=== PATIENT | male | born 1960 | race Caucasian/White ===

== ENCOUNTER 2016-09-01 12:21 | Inpatient (IN) | payer MEDICARE ==
[~2016-09-01] VITALS: Ht 177.8 cm; Wt 204.1 kg
[~2016-09-01 12:21] MED LIST: BUMEX 1 MG TAB1 MG PO; FLORAJEN3 CAPS460 MG PO; HYDROCODONE-APA1 TAB PO; K-TAB10 MEQ PO; KENALOG 0.1 % 115 GM TOPICAL; KLOR-CON 1010 MEQ PO; NYSTATIN1 PWD TOPICAL; PREPARATION H O57 GM RC; PROTONIX40 MG PO; SALINE FLUSH10 ML IV; VIBRAMYCIN 100100 MG PO
[2016-09-01 13:07] LABS: BASOPHILS 0.6 % (0-2); EOSINOPHILS 4.3 % (0-7); HEMATOCRIT 34.2 % (42.0-54.0); HEMOGLOBIN 10.9 g/dL (13.5-17.5); LYMPHOCYTES 12.1 % (15-50); MCH 26.7 pg (26.0-34.0); MCHC 31.9 g/dL (31.0-37.0); MCV 83.8 fL (80.0-100.0); MONOCYTES 14.5 % (2-11); NEUTROPHILS 67.5 % (40-80); PLATELET COUNT 132 10x3/uL (130-400); RBC 4.08 10x6/uL (4.20-6.10); RDW 18.2 % (11.5-14.5); WBC 6.8 10x3/uL (4.8-10.8)
[2016-09-01 13:17] LABS: APPEARANCE CLEAR (CLEAR); BILIRUBIN NEGATIVE (NEGATIVE); COLOR YELLOW (YELLOW); GLUCOSE NEGATIVE (NEGATIVE); KETONE NEGATIVE (NEGATIVE); LEUKOCYTE ESTERASE 1+ (NEGATIVE); NITRITE NEGATIVE (NEGATIVE); PROTEIN NEGATIVE (NEGATIVE); UROBILINOGEN NORMAL (NORMAL)
[2016-09-01 13:17] LABS: ALBUMIN 1.9 g/dL (3.4-5.0); ALKALINE PHOSPHATASE 121 U/L (46-116); ALT (SGPT) 5 U/L (10-68); BILIRUBIN - TOTAL 0.95 mg/dL (0.2-1.3); CALC OSMOLALITY 270 mosm/kg (275-300); CARBON DIOXIDE 28.8 mmol/L (21.0-32.0); CHLORIDE - SERUM 103 mmol/L (98-107); GLUCOSE 96 mg/dL (74-106); POTASSIUM - SERUM 3.3 mmol/L (3.5-5.1); PROTEIN - SERUM 8.1 g/dL (6.4-8.2); SODIUM 136 mmol/L (136-145); UREA NITROGEN 9 mg/dL (7-18); eGFR NON AFRICAN AMERICAN 82 mL/min (90-120)
[2016-09-01 13:18] LABS: BACTERIA FEW /hpf (NONE SEEN); EPITHELIAL CELLS 0-5 /hpf (0-5); MUCUS <1+ /lpf (NONE SEEN); RED CELLS - URINE 0-5 /hpf (0-5)
--- NOTE | 2016-09-01 17:00 | NUR ---
WITH ASSIST FROM 3 STAFF MEMBERS, CLEANED PATIENT'S BOTTOM. CUT OFF SHORTS, WITH PATIENT'S PERMISSION. TURNED PATIENT TO RIGHT SIDE POSITIONED WITH A PILLOW. RIGHT LEG WHEEPING, CHANGED PADS UNDER LEG. BED ALARM ON. PATIENT IS VERBALIZING PAIN IN HIS BACK, STATED HE HAS CHRONIC BACK PAIN. BED IN LOWEST POSITION, CALL LIGHT IN REACH. BED RAILS UP X'S 2. NO SIGNS OF DISTRESS NOTED.
[2016-09-01 18:24] VITALS: BP 124/62; BMI 64.7
[2016-09-01 20:00] VITALS: BP 123/62
--- NOTE | 2016-09-01 20:00 | NUR ---
RIGHT LOWER LEG HAS SWELLING.LUISA SCHREIBER BANKING AND FINANCE INSTRUCTOR TO CLEAN AND PLACE NEW PADS UNDER LEG,LEAVING WOUNDS OPEN TO AIR.PT DENIES NEEDS.CALL LIGHT IN REACH
[2016-09-02 04:00] VITALS: BP 140/67
[2016-09-02 09:28] VITALS: BP 111/56
[2016-09-02 11:02] LABS: BASOPHILS 0.3 % (0-2); EOSINOPHILS 10.1 % (0-7); HEMATOCRIT 30.3 % (42.0-54.0); HEMOGLOBIN 9.6 g/dL (13.5-17.5); IMMATURE GRANULOCYTES 1.2 % (0-5); LYMPHOCYTES 12.6 % (15-50); MCHC 31.7 g/dL (31.0-37.0); MCV 85.4 fL (80.0-100.0); MEAN PLATELET VOLUME 8.7 fL (7.4-10.4); MONOCYTES 13.3 % (2-11); NEUTROPHILS 62.5 % (40-80); PLATELET COUNT 135 10x3/uL (130-400); RBC 3.55 10x6/uL (4.20-6.10); RDW 18.5 % (11.5-14.5)
[2016-09-02 11:24] LABS: ALBUMIN 1.6 g/dL (3.4-5.0); ALKALINE PHOSPHATASE 104 U/L (46-116); ALT (SGPT) 7 U/L (10-68); CALC OSMOLALITY 269 mosm/kg (275-300); CALCIUM 7.4 mg/dL (8.5-10.1); CARBON DIOXIDE 29.4 mmol/L (21.0-32.0); CHLORIDE - SERUM 103 mmol/L (98-107); CREATININE - SERUM 0.8 mg/dL (0.6-1.3); GLUCOSE 105 mg/dL (74-106); POTASSIUM - SERUM 3.4 mmol/L (3.5-5.1); PROTEIN - SERUM 6.8 g/dL (6.4-8.2); SODIUM 136 mmol/L (136-145); UREA NITROGEN 8 mg/dL (7-18); eGFR NON AFRICAN AMERICAN > 90 mL/min (90-120)
[2016-09-02 12:16] VITALS: BP 151/68
[2016-09-02 12:54] LABS: HEMOGLOBIN A1C 5.1 % (4.8-6.0)
[2016-09-02 13:32] VITALS: Ht 177.8 cm; Wt 204.1 kg
[2016-09-02 16:01] VITALS: BP 114/57
[2016-09-02 19:00] VITALS: BP 131/57
--- NOTE | 2016-09-02 19:20 | NUR ---
RECIEVED SHIFT REPORT. PT IS LYING IN BED. ALERT AND ORIENTED AND ABLE TO VERBALIZE NEEDS. PT REQUIRES SOME ASSISTANCE TURNING IN BED FOR COMFORT AND SKIN CARE. IV IS PATENT AND ANTIBIOTIC RUNNING AT THIS TIME. PT STATES PAIN IS 4/10. ISOLATION PRECAUTIONS IN PLACE. NO NEEDS ARE VERBALIZED AT THIS TIME. WILL CONTINUE TO MONITOR. SIDE RAILS ARE UP X 2. BED IS IN LOWEST POSITION. BED ALARM IS ON FOR SAFETY. CALL LIGHT IS WITHIN REACH.
--- NOTE | 2016-09-02 20:46 | NUR ---
SHIFT ASSESSMENT COMPLETED. ANTIBIOTIC HUNG PER ORDER. DELAY IN ADMINISTRATION WAS WAITING ON PHARMACY TO BRING UP. NO NEEDS ARE VOICED. WILL MONITOR. SIDE RAILS X 2. BED LOW. BED ALARM ON. CALL LIGHT IN REACH.
[2016-09-03 04:00] VITALS: BP 123/6
--- NOTE | 2016-09-03 07:10 | NUR ---
REPORT RECEIVED FROM INDUSTRIAL CHEMISTRY TEACHER NURSE. CALL LIGHT IN REACH.
[2016-09-03 08:18] LABS: BASOPHILS 0.6 % (0-2); EOSINOPHILS 11.5 % (0-7); HEMATOCRIT 32.2 % (42.0-54.0); IMMATURE GRANULOCYTES 2.8 % (0-5); LYMPHOCYTES 14.2 % (15-50); MCH 26.7 pg (26.0-34.0); MCHC 31.1 g/dL (31.0-37.0); MCV 85.9 fL (80.0-100.0); MONOCYTES 15.6 % (2-11); NEUTROPHILS 55.3 % (40-80); PLATELET COUNT 134 10x3/uL (130-400); RBC 3.75 10x6/uL (4.20-6.10); RDW 18.7 % (11.5-14.5); WBC 5.4 10x3/uL (4.8-10.8)
--- NOTE | 2016-09-03 08:20 | NUR ---
ASSESSMENT COMPLETED. CALL LIGHT IN REACH. WILL CONTINUE WITH PLAN OF CARE.
[2016-09-03 08:35] LABS: ALBUMIN 1.8 g/dL (3.4-5.0); ALKALINE PHOSPHATASE 104 U/L (46-116); ALT (SGPT) 6 U/L (10-68); BILIRUBIN - TOTAL 0.53 mg/dL (0.2-1.3); CALC OSMOLALITY 271 mosm/kg (275-300); CALCIUM 7.8 mg/dL (8.5-10.1); CARBON DIOXIDE 30.7 mmol/L (21.0-32.0); CHLORIDE - SERUM 104 mmol/L (98-107); CREATININE - SERUM 0.9 mg/dL (0.6-1.3); GLUCOSE 103 mg/dL (74-106); POTASSIUM - SERUM 3.3 mmol/L (3.5-5.1); PROTEIN - SERUM 7.5 g/dL (6.4-8.2); SODIUM 137 mmol/L (136-145); UREA NITROGEN 6 mg/dL (7-18); eGFR NON AFRICAN AMERICAN > 90 mL/min (90-120)
[2016-09-03 08:54] VITALS: BP 126/68
[2016-09-03 10:17] LABS: T4 THYROXINE 4.4 ug/dL (4.7-13.3)
--- NOTE | 2016-09-03 10:53 | NUR ---
AM MEDS ADMINISTERED. DILAUDID AND ZOFRAN IVP PER C/O PAIN AND NAUSEA. CALL LIGHT IN REACH. WILL CONTINUE WITH PLAN OF CARE.
--- NOTE | 2016-09-03 11:17 | NUR ---
PT SITTING UP IN BED WITH NO COMPLAINTS OF PAIN OF PAIN OR DISCOMFORT AT THIS TIME. BED IN LOW POSITION AND CALL LIGHT WITHIN REACH. WILL CONTINUE TO MONITOR.
--- NOTE | 2016-09-03 11:20 | NUR ---
PT RESTING IN BED WITH NO COMPLAINTS OF PAIN OR DISCOMFORT AT THIS TIME. ASSISTED PT ON TO BEDPAN AND PUT CALL LIGHT IN REACH. WILL CONTINUE TO MONITOR.
--- NOTE | 2016-09-03 12:28 | NUR ---
STATES PAIN HAS DECREASED TO A 5. DIET COKE TAKEN TO PATIENT.
--- NOTE | 2016-09-03 14:11 | NUR ---
LOVENOX SUBQ TO LLQ ABD. UNABLE TO START NYSTATIN POWDER.
--- NOTE | 2016-09-03 14:57 | NUR ---
Patient Name: BRADLEY HARRIS Admission Status: ER Accout number: [id number] Admission Date: 09-01-2016 : 1960 Admission Diagnosis: Attending: KT Current LOS: 2 Anticipated DC Date: 09-06-2016 Planned Disposition: Home Primary Insurance: MEDICARE A & B Discharge Planning Comments: CM MET WITH PATIENT REGARDING D/C NEEDS AND PLANS. PATIENT STATED HE LIVES WITH HIS (ELIANA) AND SHE WILL DRIVE HIM HOME AT DISCHARGE. PATIENT STATED HE HAS A RAMP TO ENTER HIS HOME AND NO STAIRS INSIDE. PATIENT STATES HE IS INDEPENDENT WITH HIS CARE AND HAS A WALKER, CANE, WHEELCHAIR, AND BS COMMODE T HOME. PATIENTS PCP IS DR. ORTIZ, AND PHARMACY IS [facility]. PATIENT DOES NOT WANT HOME HEALTH AT THIS TIME. CM WILL CONTINUE TO FOLLOW PATIENT WITH D/C NEEDS AND PLANS. PCP DR. DIANA [facility]- [phone] ELIANA () [phone] Bio Medical Technician: Martina Pollack Is the patient Alert and Oriented? Yes 0 * How many steps to enter\exit or inside your home? RAMP 0 * PCP DR. ORTIZ 0 * Pharmacy [facility] 0 * Preadmission Environment Home with Family 0 * ADLs Independent 0 * Equipment Bedside Commode Cane Walker Wheelchair 0 * List name and contact numbers for known caregivers / representatives who currently or will assist patient after discharge: ELIANA () [phone] * Community resources currently utilized None 0 * Additional services required to return to the preadmission environment? Yes 0 * Can the patient safely return to the preadmission environment? Yes 0 * Has this patient been hospitalized within the prior 30 days at any hospital? No 0 Grand Total: 0
--- NOTE | 2016-09-03 16:20 | NUR ---
RESTING WITH EYES CLOSED. RESP EVEN AND UNLABORED. CALL LIGHT IN REACH.
--- NOTE | 2016-09-03 17:29 | NUR ---
ROCEPHIN IVPB. DILAUDID 1 MG SIVP. CALL LIGHT IN REACH.
--- NOTE | 2016-09-03 18:52 | NUR ---
IV VANCOMYCIN PER ORDER. NO CHANGES IN INITIAL ASSESSMENT. CALL LIGHT IN REACH. WILL CONTINUE WITH PLAN OF CARE. BED ALARM ON.
[2016-09-03 19:00] VITALS: BP 117/61
--- NOTE | 2016-09-03 19:30 | NUR ---
ASSESSMENT COMPLETE. S1S2. RADIAL AND PEDAL PULSES WEAK. EDEMA; WEEPING; PITTING; REDNESS BILATERALLY TO LOWER EXTREMITIES. OOZING WOUND ON RIGHT LEG. YEAST BEHIND RIGHT KNEE. REDNESS TO GROIN FOLDS AND ABD FOLDS. SCALY/DRY CRACKING SKIN WITH YELLOW DISCOLORATION TO BILATERALLY FEET. TOE NAILS YELLOW/BROWN. RT HAND PIV; PATENT. CONTACT ISOLATION.
--- NOTE | 2016-09-03 23:30 | NUR ---
PT RESTING; EYES CLOSED. NO DISTRESS NOTED. CALL LIGHT IN REACH. WILL CONTINUE TO MONITOR.
--- NOTE | 2016-09-04 01:29 | NUR ---
PT C/O PAIN. PRN MEDICATION GIVEN FOR PAIN. SEE EMAR FOR DETAILS. PAIN IN RIGHT LEG.
--- NOTE | 2016-09-04 02:15 | NUR ---
LINENS CHANGED ON AND UNDER RT LEG. SATURATED FROM WEEPING EDEMA AND OOZING WOUND ON THE LATERAL PORTION OF LEFT LEG.
[2016-09-04 04:00] VITALS: BP 119/52
[2016-09-04 05:18] LABS: BASOPHILS 0.6 % (0-2); EOSINOPHILS 11.4 % (0-7); HEMATOCRIT 32.2 % (42.0-54.0); HEMOGLOBIN 10.1 g/dL (13.5-17.5); IMMATURE GRANULOCYTES 2.6 % (0-5); LYMPHOCYTES 15.7 % (15-50); MCH 26.9 pg (26.0-34.0); MCHC 31.4 g/dL (31.0-37.0); MCV 85.9 fL (80.0-100.0); MEAN PLATELET VOLUME 8.9 fL (7.4-10.4); MONOCYTES 15.2 % (2-11); NEUTROPHILS 54.5 % (40-80); RBC 3.75 10x6/uL (4.20-6.10); RDW 18.6 % (11.5-14.5); WBC 5.3 10x3/uL (4.8-10.8)
[2016-09-04 05:24] LABS: PLATELET COUNT 162 10x3/uL (130-400)
[2016-09-04 05:41] LABS: ALBUMIN 1.8 g/dL (3.4-5.0); ALKALINE PHOSPHATASE 102 U/L (46-116); ALT (SGPT) 7 U/L (10-68); BILIRUBIN - TOTAL 0.54 mg/dL (0.2-1.3); CALC OSMOLALITY 272 mosm/kg (275-300); CALCIUM 7.8 mg/dL (8.5-10.1); CHLORIDE - SERUM 104 mmol/L (98-107); CREATININE - SERUM 0.9 mg/dL (0.6-1.3); GLUCOSE 100 mg/dL (74-106); POTASSIUM - SERUM 3.8 mmol/L (3.5-5.1); PROTEIN - SERUM 7.5 g/dL (6.4-8.2); SODIUM 138 mmol/L (136-145); UREA NITROGEN 5 mg/dL (7-18); eGFR NON AFRICAN AMERICAN > 90 mL/min (90-120)
--- NOTE | 2016-09-04 07:15 | NUR ---
REPORT RECEIVED FROM GAGGERMAN NURSE. CALL LIGHT IN REACH.
--- NOTE | 2016-09-04 08:35 | NUR ---
ASSESSMENT COMPLETED. DILAUDID AND ZOFRAN IVP. PROTONIX IVP. PLACED ON AND OFF BEDPAN. LAESTEPHANIA BM NOTED. LINENS CHANGED WELL DRSG TO LEG. BED ALARM ON. CALL LIGHT IN REACH. WILL CONTINUE WITH PLAN OF CARE.
[2016-09-04 08:51] VITALS: BP 124/57
--- NOTE | 2016-09-04 10:49 | NUR ---
VANC IVPB PER ORDER. NO NEEDS VOICED. CALL LIGHT IN REACH.
--- NOTE | 2016-09-04 11:48 | NUR ---
IV TO RIGHT HAND LEAKING. ATTEMPTED TO RESITE IV X2 STICKS. SPOKE WITH DR. SIMON AND BEV HUSAIN. STATES IT IS OK TO PUT IN ORDER FOR MIDLINE IV.
--- NOTE | 2016-09-04 12:40 | NUR ---
PT SITTING UP IN BED AT THIS TIME WITH NO COMPLAINTS, PT HAS NO NEEDS AT THIS TIME. BED IN LOW POSITION AND CALL LIGHT WITHIN REACH.
[2016-09-04 13:20] VITALS: BP 142/83
--- NOTE | 2016-09-04 13:20 | NUR ---
STILL WAITING ON MIDLINE PLACEMENT.
--- NOTE | 2016-09-04 15:21 | NUR ---
MIDLINE IN PER STEVE PAINTER. DILAUDID IVP. ROCEPHIN IVPN AND LOVENOX SUBQ.
[2016-09-04 16:38] VITALS: BP 121/53
--- NOTE | 2016-09-04 17:20 | NUR ---
RESTING WITH EYES CLOSED. RESP EVEN AND UNLABORED. CALL LIGHT IN REACH.
--- NOTE | 2016-09-04 18:31 | NUR ---
CURTIS IVP. VANC IVPB. NO CHANGES IN INITIAL ASSESSMENT. CALL LIGHT IN REACH. BED ALARM. WILL CONTINUE WITH PLAN OF CARE.
--- NOTE | 2016-09-04 19:20 | NUR ---
RECIEVED SHIFT REPORT. PT IS LYING IN BED. ALERT AND ORIENTED AND ABLE TO VERBALIZE NEEDS. IV IS PATENT AND FLUIDS RUNNING @ KVO. PT REQUIRES ASSISTANCE TURNING IN BED FOR COMFORT AND SKIN CARE. ISOLATION PRECAUTIONS IN PLACE. PT STATES PAIN IS 7/10. NO NEEDS ARE VERBALIZED AT THIS TIME. WILL CONTINUE TO MONITOR. SIDE RAILS ARE UP X 2. BED IS IN LOWEST POSITION. BED ALARM IS ON FOR SAFETY. CALL LIGHT IS WITHIN REACH.
[2016-09-04 20:00] VITALS: BP 112/56
--- NOTE | 2016-09-04 20:26 | NUR ---
SHIFT ASSESSMENT COMPLETED. NYSTOP POWDER ADMINISTERED PER ORDER. PT C/O PAIN 09/09. ADMINISTERED PRESCRIBED PRN DILAUDID PER ORDER. DENIES FURTHER NEEDS. WILL MONITOR. SIDE RAILS X 2. BED LOW. BED ALARM ON. CALL LIGHT IN REACH.
[2016-09-05 04:00] VITALS: BP 110/51
[2016-09-05 06:04] LABS: ALBUMIN 1.7 g/dL (3.4-5.0); ALKALINE PHOSPHATASE 93 U/L (46-116); CALC OSMOLALITY 272 mosm/kg (275-300); CALCIUM 7.4 mg/dL (8.5-10.1); CARBON DIOXIDE 27.7 mmol/L (21.0-32.0); CHLORIDE - SERUM 104 mmol/L (98-107); CREATININE - SERUM 0.8 mg/dL (0.6-1.3); GLUCOSE 112 mg/dL (74-106); PROTEIN - SERUM 6.5 g/dL (6.4-8.2); SODIUM 137 mmol/L (136-145); UREA NITROGEN 6 mg/dL (7-18); eGFR NON AFRICAN AMERICAN > 90 mL/min (90-120)
[2016-09-05 06:07] LABS: ALT (SGPT) 10 U/L (10-68); POTASSIUM - SERUM 4.4 mmol/L (3.5-5.1)
[2016-09-05 06:45] LABS: BASOPHILS 0.4 % (0-2); EOSINOPHILS 9.5 % (0-7); HEMATOCRIT 31.8 % (42.0-54.0); HEMOGLOBIN 9.8 g/dL (13.5-17.5); IMMATURE GRANULOCYTES 1.7 % (0-5); LYMPHOCYTES 14.1 % (15-50); MCH 26.6 pg (26.0-34.0); MCHC 30.8 g/dL (31.0-37.0); MCV 86.4 fL (80.0-100.0); MEAN PLATELET VOLUME 9.6 fL (7.4-10.4); MONOCYTES 16.1 % (2-11); NEUTROPHILS 58.2 % (40-80); PLATELET COUNT 153 10x3/uL (130-400); RBC 3.68 10x6/uL (4.20-6.10); RDW 18.6 % (11.5-14.5); WBC 5.2 10x3/uL (4.8-10.8)
--- NOTE | 2016-09-05 07:10 | NUR ---
REPORT RECEIVED FROM MANAGER CREDIT COLLECTIONS. CALL LIGHT IN REACH.
--- NOTE | 2016-09-05 08:20 | NUR ---
ASSESSMENT COMPLETED. AM MEDS ADMINISTERED. DILAUDID AND ZOFRAN IV PER PATIENT REQUEST. BEV OBRIEN, IN ROOM TO SEE PATIENT. CALL LIGHT IN REACH. WILL CONTINUE WITH PLAN OF CARE.
[2016-09-05 09:27] VITALS: BP 119/54
--- NOTE | 2016-09-05 10:05 | NUR ---
NO NEEDS VOICED AT THIS TIME. CALL LIGHT IN REACH.
--- NOTE | 2016-09-05 11:05 | NUR ---
VANCOMYCIN IVPB. VISITOR AT BEDSIDE. CALL LIGHT IN REACH.
[2016-09-05 13:20] VITALS: BP 124/51
--- NOTE | 2016-09-05 13:52 | NUR ---
ZOFRAN AND DILAUDID IVP PER PATIENT REQUEST FOR NAUSEA AND PAIN. ALSO REMOVED BEDPAN FROM UNDER PATIENT. LINENS CHANGED. ALSO CHANGED BLUE PADS UNDER HIS RIGHT LEG WITH ASSISTANCE FROM DR. BAINS AND ANALY, AUTOMATIC PACKER OPERATOR.
--- NOTE | 2016-09-05 14:10 | NUR ---
NUTRITION MONITORING & EVAL CHART REVIEWED, PT REMAINS IN ISOLATION. TOLERATING ADA DIET WITH 100% INTAKE MEALS. WILL CONTINUE TO PROVIDE DIET, MONITOR PO INTAKE. RD FOLLOWING
--- NOTE | 2016-09-05 15:20 | NUR ---
RESTING WITH EYES CLOSED. RESP EVEN AND UNLABORED. CALL LIGHT IN REACH.
--- NOTE | 2016-09-05 16:20 | NUR ---
WOUND CARE NURSE IN ROOM TO SEE PATIENT.
--- NOTE | 2016-09-05 16:26 | NUR ---
Wound Care consult: Pt right leg is edematous, hard (not pitting), thickened skin with cobblestone appearance and has raised red bumps below the knee. The foot is puffy. There is an ulcerated area on the lateral lower leg. Pt states he has been dealing with this for over 20 years. Recommend keeping leg clean and dry.
[2016-09-05 16:40] VITALS: BP 118/56
--- NOTE | 2016-09-05 17:25 | NUR ---
FLO LEE. CALL LIGHT IN REACH.
--- NOTE | 2016-09-05 18:18 | NUR ---
NO CHANGES IN INITIAL ASSESSMENT. ZOFRAN AND DILAUDID IVP. VANC IVPB. CALL LIGHT IN REACH. WILL CONTINUE WITH PLAN OF CARE.
[2016-09-05 20:00] VITALS: BP 117/46
--- NOTE | 2016-09-05 20:00 | NUR ---
PT ASSESSMENT COMPLETE AWAKE AND ALERT ORIENTED X 3 LUNGS CLAER BIALTERALLY BSA X 4 QUADS. LARGE OPEN SCALY WOUND NOTED TO OUTTER SIDE OF RIGHT LOWER LEG WEEPING SEROUS DRAINGE. SEE FLOW SHEET FOR FULL ASSESSMENT
[2016-09-06] VITALS: BP 134/53
--- NOTE | 2016-09-06 02:13 | NUR ---
COMPLETE BED BATH GIVEN AND BED LINNEN CHANGED ABD PAD APPLIED TO OPEN AREA OF RIGHT CALF. NOTED TO HAVE EXCORIATION TO RIGHT INNER BUTTOCK VANESSA BUTT PASTE APPLIED FOR PROTECTIVE BARRIER. PAIN MED PER ORDER AND PER REQUEST GIVEN IV AT THIS TIME WELL. WILL MONITOR CALL LIGHT AND H2O IN REACH AND SIDE RAILS UP X 2
[2016-09-06 04:00] VITALS: BP 129/52
--- NOTE | 2016-09-06 05:19 | NUR ---
PT SITTING UP IN HIGH FOWLERS POSITION NO ACUTE DISTRESS NOTED VOICES ALL NEEDS TO STAFF. CALL LIGHT IN REACH SIDE RAILS UP X 2
[2016-09-06 06:17] LABS: BASOPHILS 0.6 % (0-2); EOSINOPHILS 10.8 % (0-7); HEMOGLOBIN 9.6 g/dL (13.5-17.5); LYMPHOCYTES 14.8 % (15-50); MCH 26.5 pg (26.0-34.0); MCV 85.6 fL (80.0-100.0); MEAN PLATELET VOLUME 8.8 fL (7.4-10.4); MONOCYTES 16.6 % (2-11); NEUTROPHILS 56.2 % (40-80); PLATELET COUNT 147 10x3/uL (130-400); RBC 3.62 10x6/uL (4.20-6.10); RDW 18.3 % (11.5-14.5); WBC 4.8 10x3/uL (4.8-10.8)
[2016-09-06 06:33] LABS: ALBUMIN 1.7 g/dL (3.4-5.0); ALKALINE PHOSPHATASE 92 U/L (46-116); ALT (SGPT) 9 U/L (10-68); CALC OSMOLALITY 274 mosm/kg (275-300); CALCIUM 7.8 mg/dL (8.5-10.1); CARBON DIOXIDE 32.5 mmol/L (21.0-32.0); CHLORIDE - SERUM 105 mmol/L (98-107); CREATININE - SERUM 0.9 mg/dL (0.6-1.3); GLUCOSE 109 mg/dL (74-106); POTASSIUM - SERUM 3.9 mmol/L (3.5-5.1); SODIUM 138 mmol/L (136-145); UREA NITROGEN 7 mg/dL (7-18); eGFR NON AFRICAN AMERICAN > 90 mL/min (90-120)
[2016-09-06 07:59] VITALS: BP 125/64
[2016-09-06 12:00] VITALS: BP 124/61
[2016-09-06 16:12] VITALS: BP 106/52
[2016-09-06 19:00] VITALS: BP 125/44
--- NOTE | 2016-09-06 19:30 | NUR ---
PT TRANSFERED TO [facility] BED PER STAFF ASSIST X 5 TOLERATED WELL
--- NOTE | 2016-09-06 21:00 | NUR ---
PT ASSESSMENT COMPLETE AWAKE AND ALERT ORIENTED X 3 LUNGS CLEAR BILAT BSA X 4 QUADS NOTD TO HAVE ELEPHANTITIS TO RLE NOTED TO HAVE OPEN AREA APEARS TO BE STASIS ULCER TO RLE CLEANSED AND BACTROBAN APPLIED COVERED LOOSLY WITH ABD PAD. BED BATH GIVEN PER THIS NURSE AND SUPERCALENDER OPERATOR HELPER STAFF. PT APPRECIATIVE OF CARE.
--- NOTE | 2016-09-07 00:57 | NUR ---
PT RESTING IN BED WITH NO DISTRESS NOTED VOICES ALL NEEDS TO STAFF CALL LIGHT INREACH SIDE RAILS UP X 2
[2016-09-07 04:00] VITALS: BP 110/47
--- NOTE | 2016-09-07 04:41 | NUR ---
PT RESTING WELL IN BED EYES CLOSED RESPS EVEN AND NON LABORED CALL LIGHT IN REACH SIDE RAILS UP X 2
[2016-09-07 06:12] LABS: BASOPHILS 0.7 % (0-2); EOSINOPHILS 10.2 % (0-7); HEMATOCRIT 31.6 % (42.0-54.0); HEMOGLOBIN 10.1 g/dL (13.5-17.5); IMMATURE GRANULOCYTES 0.9 % (0-5); LYMPHOCYTES 16.6 % (15-50); MCH 27.9 pg (26.0-34.0); MCV 87.3 fL (80.0-100.0); MEAN PLATELET VOLUME 8.5 fL (7.4-10.4); MONOCYTES 17.5 % (2-11); NEUTROPHILS 54.1 % (40-80); PLATELET COUNT 152 10x3/uL (130-400); RBC 3.62 10x6/uL (4.20-6.10); RDW 18.4 % (11.5-14.5); WBC 4.4 10x3/uL (4.8-10.8)
[2016-09-07 06:39] LABS: ALBUMIN 1.7 g/dL (3.4-5.0); ALKALINE PHOSPHATASE 94 U/L (46-116); ALT (SGPT) 8 U/L (10-68); CALC OSMOLALITY 273 mosm/kg (275-300); CALCIUM 7.7 mg/dL (8.5-10.1); CARBON DIOXIDE 29.8 mmol/L (21.0-32.0); CHLORIDE - SERUM 105 mmol/L (98-107); CREATININE - SERUM 0.9 mg/dL (0.6-1.3); GLUCOSE 103 mg/dL (74-106); POTASSIUM - SERUM 3.9 mmol/L (3.5-5.1); PROTEIN - SERUM 6.8 g/dL (6.4-8.2); SODIUM 138 mmol/L (136-145); UREA NITROGEN 6 mg/dL (7-18); eGFR NON AFRICAN AMERICAN > 90 mL/min (90-120)
--- NOTE | 2016-09-07 07:30 | NUR ---
PT AOX4 RESP EVEN AND NONLABORED PT DENIES NEEDS AT THIS TIME IV TO LEFT UPPER ARM PATENT AND INTACT AT THIS TIME SRX2 BED AT LOWEST SETTING CALL LIGHT WITHIN REACH WILL CONTINUE TO MONITOR
[2016-09-07 08:18] VITALS: BP 118/57
[2016-09-07 12:24] VITALS: BP 119/49
[2016-09-07 16:04] VITALS: BP 104/50
[2016-09-07 20:00] VITALS: BP 122/44
--- NOTE | 2016-09-07 22:40 | NUR ---
Late entry for 09/06/16: Rehab Note-Acute Rehab Prescreen order received. Spoke with the patient stated "my didn't feel like I benefitted much on my last rehab stay". Discussed with the patient that it is his right of choice to refuse acute rehab but seemed he was very weak and unable to ambulate at this time which he was able to prior to this hospitalization. Stated he would discuss with his . Informed RICKI Mack of discussion with the patient. Will continue to follow at this time. Thank you for this referral! Mindy Calhoun RN Clinical Liaison, [facility] Rehab
--- NOTE | 2016-09-08 02:45 | NUR ---
RESTING WITH EYES CLOSED, NO DISTRESS NOTED, SAFETY PRECAUTIONS IN PLACE, CL IN REACH
[2016-09-08 03:54] VITALS: BP 106/46
[2016-09-08 05:42] LABS: BASOPHILS 0.8 % (0-2); EOSINOPHILS 10.9 % (0-7); HEMATOCRIT 30.2 % (42.0-54.0); HEMOGLOBIN 9.3 g/dL (13.5-17.5); IMMATURE GRANULOCYTES 0.6 % (0-5); MCH 26.3 pg (26.0-34.0); MCHC 30.8 g/dL (31.0-37.0); MCV 85.6 fL (80.0-100.0); MEAN PLATELET VOLUME 8.8 fL (7.4-10.4); MONOCYTES 18.3 % (2-11); NEUTROPHILS 53.4 % (40-80); PLATELET COUNT 146 10x3/uL (130-400); RBC 3.53 10x6/uL (4.20-6.10); RDW 18.4 % (11.5-14.5); WBC 4.8 10x3/uL (4.8-10.8)
[2016-09-08 06:09] LABS: ALBUMIN 1.7 g/dL (3.4-5.0); ALKALINE PHOSPHATASE 104 U/L (46-116); BILIRUBIN - TOTAL 0.56 mg/dL (0.2-1.3); CALC OSMOLALITY 276 mosm/kg (275-300); CALCIUM 7.6 mg/dL (8.5-10.1); CARBON DIOXIDE 33.6 mmol/L (21.0-32.0); CHLORIDE - SERUM 105 mmol/L (98-107); CREATININE - SERUM 0.8 mg/dL (0.6-1.3); GLUCOSE 102 mg/dL (74-106); POTASSIUM - SERUM 4.1 mmol/L (3.5-5.1); PROTEIN - SERUM 6.7 g/dL (6.4-8.2); SODIUM 140 mmol/L (136-145); UREA NITROGEN 7 mg/dL (7-18); eGFR NON AFRICAN AMERICAN > 90 mL/min (90-120)
[2016-09-08 06:15] LABS: ALT (SGPT) 12 U/L (10-68)
--- NOTE | 2016-09-08 07:39 | NUR ---
RESTING, DENIES NEEDS, CALL LIGHT IN REACH, BED LOWEST POSITION, WILL CONTINUE TO MONITOR
[2016-09-08 08:00] VITALS: BP 118/56
--- NOTE | 2016-09-08 09:00 | NUR ---
AWAKE AND ALERT SITTING UP IN BED AT THIS TIME. 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 PT REFUSES SCD'S. ON FIRST STEP OVERLAY FOR SKIN PRECAUTIONS. MIDLINE TO LEFT UPPER ARM PATENT. DENIES NEEDS AT THIS TIME. CALL LIGHT IN REACH, WILL CONTINUE WITH PLAN OF CARE.
[2016-09-08 20:00] VITALS: BP 121/57
[2016-09-09] VITALS: BP 130/62
[2016-09-09 04:00] VITALS: BP 130/54
[2016-09-09 05:46] LABS: BASOPHILS 1.1 % (0-2); EOSINOPHILS 11.4 % (0-7); HEMATOCRIT 31.5 % (42.0-54.0); HEMOGLOBIN 9.7 g/dL (13.5-17.5); IMMATURE GRANULOCYTES 0.7 % (0-5); MCH 26.8 pg (26.0-34.0); MCHC 30.8 g/dL (31.0-37.0); MEAN PLATELET VOLUME 8.5 fL (7.4-10.4); MONOCYTES 19.2 % (2-11); NEUTROPHILS 48.6 % (40-80); PLATELET COUNT 146 10x3/uL (130-400); RBC 3.62 10x6/uL (4.20-6.10); RDW 18.4 % (11.5-14.5); WBC 4.5 10x3/uL (4.8-10.8)
[2016-09-09 06:06] LABS: ALBUMIN 1.7 g/dL (3.4-5.0); ALKALINE PHOSPHATASE 100 U/L (46-116); CALC OSMOLALITY 274 mosm/kg (275-300); CALCIUM 7.8 mg/dL (8.5-10.1); CARBON DIOXIDE 32.6 mmol/L (21.0-32.0); CHLORIDE - SERUM 104 mmol/L (98-107); CREATININE - SERUM 0.8 mg/dL (0.6-1.3); GLUCOSE 121 mg/dL (74-106); PROTEIN - SERUM 6.8 g/dL (6.4-8.2); SODIUM 138 mmol/L (136-145); UREA NITROGEN 7 mg/dL (7-18); VANCOMYCIN - TROUGH 13.9 ug/mL (10.0-20.0); eGFR NON AFRICAN AMERICAN > 90 mL/min (90-120)
[2016-09-09 06:08] LABS: ALT (SGPT) 8 U/L (10-68)
--- NOTE | 2016-09-09 07:15 | NUR ---
REPORT RECEIVED FROM HARM REDUCTION WORKER NURSE. CALL LIGHT IN REACH.
--- NOTE | 2016-09-09 08:49 | NUR ---
ASSESSMENT COMPLETED. DILAUDID AND ZOFRAN IVP PER PATIENT REQUEST D/T PAIN AND NAUSEA. UNABLE TO PUT ON SCDs BUT PATIENT IS ON LOVENOX BID. PLACED ON BEDPAN. BED ALARM ON. CALL LIGHT IN REACH. WILL CONTINUE WITH PLAN OF CARE.
--- NOTE | 2016-09-09 10:44 | NUR ---
SBD PAD SREMOVED FROM LEGS AND CHANGED. REPOSITIONED FOR COMFORT.
--- NOTE | 2016-09-09 10:45 | NUR ---
ABD PADS REMOVED FROM RLE AND REPLACED. REPOSITIONED FOR COMFORT. CALL LIGHT IN REACH.
[2016-09-09 11:38] VITALS: BP 108/44
--- NOTE | 2016-09-09 12:47 | NUR ---
TYLENOL 650 M GPO PER C/O HEADACHE. DR. WEST IN ROOM TO SPEAK WITH PATIENT.
--- NOTE | 2016-09-09 12:49 | NUR ---
NUTRITION MONITORING & EVAL CHART REVIEWED, PT REMAINS IN ISOLATION. TOLERATING ADA DIET WITH 100% INTAKE. WILL CONTINUE TO PROVIDE DIET, MONITOR PT PROGRESS. RD FOLLOWING
--- NOTE | 2016-09-09 13:46 | NUR ---
PATIENT RECIEVED DILAUDID IVP SLOWLY OVER ONE MINUTE AT THIS TIME. FLUSHED WITH 10 ML SF. PATIENT HAS NO OTHER COMPLAINTS. CALL LIGHT WITHIN REACH.
--- NOTE | 2016-09-09 14:15 | NUR ---
RECEIVED TO ROOM 2226 FROM RECOVERY ROOM VIA BED. ORIENTED TO ROOM AND CALL LIGHT SYSTEM. EXPLAINED TO PATIENT THAT THEY CAN ONLY HAVE A CLEAR LIQUID DIET, NO MORE THAN 30 CC OF LIQUID PER 30 MINUTES, NO CARBONATED BEVERAGES, AND NO STRAWS. VERABLIZED UNDERSTANDING.
--- NOTE | 2016-09-09 15:20 | NUR ---
RESTING WITH EYES CLOSED. RESP EVEN AND UNLABORED. CALL LIGHT IN REACH.
[2016-09-09 15:46] VITALS: BP 128/55
--- NOTE | 2016-09-09 16:30 | NUR ---
ROCEPHIN IVPB AND LOVENOX SUBQ TO RLQ. STATES PAIN AND HEADACHE ARE BOTH AT A 6 THIS TIME. STATES TYLENOL DOESN'T WORK. WILL CALL DR. HAWLEY OR BEV FOR OTHER MED IF POSSIBLE.
--- NOTE | 2016-09-09 17:23 | NUR ---
LUIS FID AND CURTIS SIVP. VANC IVPB. FIORICET PO PER C/O SEBASTIAN. PADS CHANGED UNDER LEG.
--- NOTE | 2016-09-09 18:23 | NUR ---
NO CHANGES IN INITIAL ASSESSMENT. CALL LIGHT IN REACH. BARIMAXX BED. BED ALARM ON. CALL LIGHT IN REACH. WILL CONTINUE WITH PLAN OF CARE.
[2016-09-09 20:00] VITALS: BP 119/53
--- NOTE | 2016-09-09 20:00 | NUR ---
ASSESSMENT PER FLOWSHEET. BLUE PAD WRAPPED AROUND RT LOWER LEG. RT LOWER LEG WEEPING SEROUS FLUID AND HAS SMALL SORE THAT IS DRAINING SEROUS FLUID. BOTH LOWER EXTREMITIES ARE SWOLLEN ABD RED. IV LEFT AC MIDLINE IN PLACE AND SALINE LOCKED. PT ON BARRI MAX BED. SR UP X2 CALL LIGHT WITHIN REACH. PT IN CONTACT ISOLATION. BUTTOCK AND COCCYX RED AND EXCORREATED.
--- NOTE | 2016-09-09 21:50 | NUR ---
MEDS GIVEN PER MAY. C/O PAIN LOWER EXTREMITIES RATES A PAIN LEVEL #6-7. DILAUDID 1 MG IVP GIVEN FOR PAIN CONTROL. PT REQUESTING ORANGE SHERBET TO EAT. SNACK GIVEN AND CONSUMED 100%.
--- NOTE | 2016-09-09 23:41 | NUR ---
C/O NAUSEA. ZOFRAN 4MG IVP GIVEN FOR NAUSEA. NO EMESIS SEEN.
--- NOTE | 2016-09-09 23:44 | NUR ---
C/O NAUSEA NO EMESIS NOTED. ZOFRAN 4MG IVP GIVEN FOR NAUSEA.
[2016-09-10] VITALS: BP 128/60
--- NOTE | 2016-09-10 00:30 | NUR ---
EYES CLOSED RESPIRATIONS WITH EASE AND UNLABORED.
--- NOTE | 2016-09-10 01:00 | NUR ---
PT REQUESTED BATH BE GIVEN. COMPLETE BED BATH GIVEN PER JAVIER OSORIO.
--- NOTE | 2016-09-10 03:13 | NUR ---
EYES CLOSED RESPIRATIONS WITH EASE AND UNLABORED.
[2016-09-10 04:00] VITALS: BP 126/76
--- NOTE | 2016-09-10 04:18 | NUR ---
C/O PAIN IN LOWER LEGS REQUESTING PAIN PILL. FIORICET TAB ONE PO GIVEN FOR PAIN CONTROL. ANTIBIOTIC HUNG PER MIDLINE IV SITE.
--- NOTE | 2016-09-10 06:23 | NUR ---
C/O PAIN AND NAUSEA RATES PAIN IN LEGS #8 DILAUDID 1MG IVP AND ZOFRAN 4MG IVP GIVEN FOR RELIEF.
[2016-09-10 06:34] LABS: BASOPHILS 0.5 % (0-2); HEMATOCRIT 32.7 % (42.0-54.0); HEMOGLOBIN 10.1 g/dL (13.5-17.5); IMMATURE GRANULOCYTES 0.2 % (0-5); LYMPHOCYTES 19.4 % (15-50); MCH 26.6 pg (26.0-34.0); MCHC 30.9 g/dL (31.0-37.0); MCV 86.3 fL (80.0-100.0); MEAN PLATELET VOLUME 8.9 fL (7.4-10.4); MONOCYTES 19.1 % (2-11); NEUTROPHILS 48.8 % (40-80); PLATELET COUNT 157 10x3/uL (130-400); RBC 3.79 10x6/uL (4.20-6.10); RDW 18.2 % (11.5-14.5); WBC 4.3 10x3/uL (4.8-10.8)
[2016-09-10 06:46] LABS: ALBUMIN 1.8 g/dL (3.4-5.0); ALKALINE PHOSPHATASE 114 U/L (46-116); BILIRUBIN - TOTAL 0.77 mg/dL (0.2-1.3); CALC OSMOLALITY 278 mosm/kg (275-300); CARBON DIOXIDE 32.5 mmol/L (21.0-32.0); CHLORIDE - SERUM 105 mmol/L (98-107); CREATININE - SERUM 0.9 mg/dL (0.6-1.3); GLUCOSE 97 mg/dL (74-106); POTASSIUM - SERUM 4.2 mmol/L (3.5-5.1); PROTEIN - SERUM 7.5 g/dL (6.4-8.2); SODIUM 141 mmol/L (136-145); UREA NITROGEN 7 mg/dL (7-18); eGFR NON AFRICAN AMERICAN > 90 mL/min (90-120)
[2016-09-10 06:47] LABS: ALT (SGPT) 13 U/L (10-68)
--- NOTE | 2016-09-10 07:15 | NUR ---
REPORT RECEIVED FROM RELEASE OF INFORMATION CLERK NURSE. CALL LIGHT IN REACH.
[2016-09-10 09:05] VITALS: BP 143/58
--- NOTE | 2016-09-10 09:20 | NUR ---
ASSESSMENT COMPLETED. CONTACT ISOLATION. CALL LIGHT IN REACH. WILL CONTINUE WITH PLAN OF CARE.
--- NOTE | 2016-09-10 10:10 | NUR ---
AM MEDS ADMINISTERED ALONG WITH DILAUDID AND ZOFRAN IVP. BED ALARM ON. CALL LIGHT IN REACH. WILL CONTINUE WITH PLAN OF CARE.
[2016-09-10 11:37] VITALS: BP 127/58
--- NOTE | 2016-09-10 12:48 | NUR ---
AWAITING PHYSICAL THERAPY TO GET OOB. CONTACT ISOLATION.
--- NOTE | 2016-09-10 14:20 | NUR ---
RESTING WITH EYES CLOSED. RESP EVEN AND UNLABORED. CALL LIGHT IN REACH.
--- NOTE | 2016-09-10 15:22 | NUR ---
Rehab Note- Spoke with patient. Now willing to come to inpatient acute rehab, realizes he cannot return home at this time. Discussed documented refusal of therapy the past 3 days. States that didn't refuse but was busy when attempted to do therapy and therapist didn't return later. Understands that he has to participate in the required 3hrs/day of therapy as he has been in the acute rehab in the past. Spoke with PT, stated was able to get the patient up to the side of bed and he verbalized understanding of participating with therapy. Will admit the patient to acute rehab when ready for discharge from the acute hospital. Thank you for this referral! Mindy Calhoun RN Clinical Liaison, [facility] Rehab
--- NOTE | 2016-09-10 15:53 | NUR ---
FIORICET PO. IVP DILAUDID AND [id number]. LOVENOX SUBQ TO RLQ. ROCPHIN IVPB. BLUE PADS CHANGED UNDER PATIENT'S LEGS.
--- NOTE | 2016-09-10 17:55 | NUR ---
LINENS CHANGED AGAIN UNDER RLE. VANC IVPB. WILL GIVE ORAL PAIN MEDS WHEN THEY ARE DUE.
--- NOTE | 2016-09-10 18:17 | NUR ---
VANCOMYCIN IVPB. NO CHANGES IN INITIAL ASSESSMENT. CALL LIGHT IN REACH. BED ALARM IS ON. WILL CONTINUE WITH PLAN OF CARE.
--- NOTE | 2016-09-10 19:20 | NUR ---
PT IS AWAKE AND ORIENTED X4. INQUIRED ON NEW TUBE OF BACTRIM, CHECKED EMAR AND ADVISED NEXT DOSE NOT UNTIL 2100 WILL MAKE SURE NEW TUBE IS ON FLOOR BEFORE THEN. REQUESTED SODA, ADVISED PT ON DIABETIC DIET AND CAN HAVE DIET SODA, NO OTHER REQUESTS AT THIS TIME. CALL LIGHT WITHIN REACH, BED IN LOW POSITION, CONTINUE WITH CARE PLAN
[2016-09-10 20:00] VITALS: BP 111/46
--- NOTE | 2016-09-10 21:46 | NUR ---
PT REQUESTED BOB CRACKERS AND PEANUT BUTTER, BED IN LOW POSITION, NO OTHER NEEDS AT THIS TIME. CALL LIGHT WITHIN REACH
[2016-09-11] VITALS: BP 138/39
--- NOTE | 2016-09-11 00:39 | NUR ---
EYES CLOSED RESPIRATIONS WITH EASE AND UNLABORED.
[2016-09-11 04:00] VITALS: BP 130/51
[2016-09-11 05:49] LABS: BASOPHILS 1.6 % (0-2); EOSINOPHILS 13.5 % (0-7); HEMATOCRIT 29.9 % (42.0-54.0); HEMOGLOBIN 9.3 g/dL (13.5-17.5); IMMATURE GRANULOCYTES 0.5 % (0-5); LYMPHOCYTES 20.2 % (15-50); MCH 26.7 pg (26.0-34.0); MCHC 31.1 g/dL (31.0-37.0); MCV 85.9 fL (80.0-100.0); MEAN PLATELET VOLUME 8.9 fL (7.4-10.4); MONOCYTES 18.4 % (2-11); NEUTROPHILS 45.8 % (40-80); PLATELET COUNT 140 10x3/uL (130-400); RBC 3.48 10x6/uL (4.20-6.10); RDW 18.3 % (11.5-14.5); WBC 4.3 10x3/uL (4.8-10.8)
[2016-09-11 06:06] LABS: ALBUMIN 1.6 g/dL (3.4-5.0); ALKALINE PHOSPHATASE 105 U/L (46-116); ALT (SGPT) 12 U/L (10-68); BILIRUBIN - TOTAL 0.59 mg/dL (0.2-1.3); CALC OSMOLALITY 280 mosm/kg (275-300); CALCIUM 7.5 mg/dL (8.5-10.1); CARBON DIOXIDE 31.6 mmol/L (21.0-32.0); CHLORIDE - SERUM 107 mmol/L (98-107); CREATININE - SERUM 0.9 mg/dL (0.6-1.3); GLUCOSE 95 mg/dL (74-106); POTASSIUM - SERUM 4.2 mmol/L (3.5-5.1); PROTEIN - SERUM 6.8 g/dL (6.4-8.2); SODIUM 142 mmol/L (136-145); UREA NITROGEN 8 mg/dL (7-18); eGFR NON AFRICAN AMERICAN > 90 mL/min (90-120)
--- NOTE | 2016-09-11 07:45 | NUR ---
REPORT RECEIVED FROM STEVE HUTCHISON. CALL LIGHT IN REACH.
[2016-09-11 08:10] VITALS: BP 127/51
--- NOTE | 2016-09-11 08:10 | NUR ---
PT SITTING UP IN BED WITH NO VISABLE SIGNS OF PAIN OR DISCOMFORT AT THIS TIME. PT VOICES NO NEEDS. BED IN LOW POSITION WITH SIDE RAILS UP X2. CALL LIGHT WITHIN REACH. WILL CONTINUE TO MONITOR.
--- NOTE | 2016-09-11 09:30 | NUR ---
ASSESSMENT COMPLETED. CALL LIGHT IN REACH. WILL CONTINUE WITH OF CARE.
[2016-09-11] MEDS ORDERED: LOVENOX40 MG/0.4 SC (10:34)
[2016-09-11] MEDS ORDERED: Bactroban ointment TOPICAL (10:35)
[2016-09-11] MEDS ORDERED: NYSTATIN1 PWD TOPICAL (10:35)
[2016-09-11] MEDS ORDERED: ESGIC TABLET1 TAB PO (10:35)
[2016-09-11] MEDS ORDERED: CALMOSEPTINE OI71 GM TOPICAL (10:35)
[2016-09-11] MEDS ORDERED: ACETAMINOPHEN325 MG PO (10:35)
[2016-09-11] MEDS ORDERED: LEVOXYL100 MCG PO (10:35)
[2016-09-11] MEDS ORDERED: PROTONIX I40 MG/VIAL IV (10:36)
--- NOTE | 2016-09-11 11:42 | NUR ---
SAMM WITH AM MEDS ADMINISTERED. CALL LIGHT IN REACH.
[2016-09-11 12:51] VITALS: BP 115/53
--- NOTE | 2016-09-11 13:20 | NUR ---
NO NEEDS VOICED AT THIS TIME. CALL LIGHT IN REACH.
--- NOTE | 2016-09-11 15:48 | NUR ---
MEDS ADMINISTERED BEFORE REHAB TRANSFER.
--- NOTE | 2016-09-11 16:50 | NUR ---
TRANSFERRED TO ROOM 1110 IN REHAB VIA BED.
== END 2016-09-11 16:50 | DRG 602 ==
LOC: D.ER 12:21 → D.MS 15:14
PROVIDERS: Emergency Medicine; Family Medicine; ADMIT Family Medicine
PROC: 05HC33Z Insertion of Infusion Device into Left Basilic Vein, Percutaneous Approach (ICD-10-PCS; principal; 2016-09-04)
PROC: B54NZZA Ultrasonography of Left Upper Extremity Veins, Guidance (ICD-10-PCS; 2016-09-04)
DX: L03.116 Cellulitis of left lower limb (principal); R53.2 Functional quadriplegia; D62 Acute posthemorrhagic anemia; Z68.44 Body mass index [BMI] 60.0-69.9, adult; N17.9 Acute kidney failure, unspecified; L03.115 Cellulitis of right lower limb; I89.0 Lymphedema, not elsewhere classified; F32.9 Major depressive disorder, single episode, unspecified; I10 Essential (primary) hypertension; K21.9 Gastro-esophageal reflux disease without esophagitis; W19.XXXA Unspecified fall, initial encounter; R21 Rash and other nonspecific skin eruption; E66.01 Morbid (severe) obesity due to excess calories; I87.8 Other specified disorders of veins; E87.6 Hypokalemia

== ENCOUNTER 2016-09-11 11:47 | Inpatient (IN) | payer MEDICARE ==
[~2016-09-11] VITALS: Ht 177.8 cm; Wt 188.2 kg
[~2016-09-11 11:47] MED LIST changes: +ACETAMINOPHEN325 MG PO; +Bactroban ointment TOPICAL; +CALMOSEPTINE OI71 GM TOPICAL; +ESGIC TABLET1 TAB PO; +LEVOXYL100 MCG PO; +LOVENOX40 MG/0.4 SC; +PROTONIX I40 MG/VIAL IV
--- NOTE | 2016-09-11 17:00 | NUR ---
RECIEVED PT/MED SURG/HILROM CRLT BED.ORIENTED TO ROOM AND SURROUNDING & CL.
[2016-09-11 18:15] VITALS: BP 106/64; BMI 59.7
--- NOTE | 2016-09-11 19:27 | NUR ---
LYING IN BED WITH TV ON. HEAD OF BED ELEVATED FOR COMFORT. ALERT AND ORIENTED TIMES 4. DENIES ANY PAIN . CALL LIGHT AND OVERBED TABLE IN REACH.
--- NOTE | 2016-09-11 23:37 | NUR ---
RESTING IN BED WITH EYES OPEN AND TV ON. PAIN MEDICATION GIVEN D/T TO COMPLAINTS OF LEG PAIN. CALL LIGHT AND OVERBED TABLE ION REACH.
--- NOTE | 2016-09-12 03:24 | NUR ---
LYING IN BED WITH EYES OPEN. COMPLAINS OF LEG AND BACK PAIN. REQUESTED PAIN MEDICATION. MEDS GIVEN PER ORDERS. CALL LIGHT IN REACH.
[2016-09-12 04:03] VITALS: BP 122/53
[2016-09-12 05:29] LABS: BASOPHILS 1.6 % (0-2); EOSINOPHILS 14.6 % (0-7); HEMATOCRIT 31.7 % (42.0-54.0); HEMOGLOBIN 9.7 g/dL (13.5-17.5); IMMATURE GRANULOCYTES 0.3 % (0-5); LYMPHOCYTES 22.3 % (15-50); MCH 26.4 pg (26.0-34.0); MCHC 30.6 g/dL (31.0-37.0); MCV 86.1 fL (80.0-100.0); MEAN PLATELET VOLUME 8.8 fL (7.4-10.4); NEUTROPHILS 42.2 % (40-80); PLATELET COUNT 137 10x3/uL (130-400); RBC 3.68 10x6/uL (4.20-6.10); RDW 18.4 % (11.5-14.5); WBC 3.6 10x3/uL (4.8-10.8)
[2016-09-12 05:42] LABS: CALC OSMOLALITY 276 mosm/kg (275-300); CALCIUM 7.9 mg/dL (8.5-10.1); CARBON DIOXIDE 32.2 mmol/L (21.0-32.0); CHLORIDE - SERUM 105 mmol/L (98-107); CREATININE - SERUM 0.9 mg/dL (0.6-1.3); GLUCOSE 98 mg/dL (74-106); POTASSIUM - SERUM 3.9 mmol/L (3.5-5.1); SODIUM 139 mmol/L (136-145); UREA NITROGEN 9 mg/dL (7-18); eGFR NON AFRICAN AMERICAN > 90 mL/min (90-120)
[2016-09-12 08:42] VITALS: BP 132/58
--- NOTE | 2016-09-12 09:30 | NUR ---
PT RESTING IN BED, DENIES NEEDS. AM MEDS ADMINISTERED. WCTM.
[2016-09-12 10:03] VITALS: Ht 177.8 cm; Wt 188.2 kg
--- NOTE | 2016-09-12 12:01 | NUR ---
Right and left lower extremities with massive enlargement, hard thick skin with cobblestone appearance. Feet are puffy and box shaped. Small solid raised bumps noted below knees. There is a 3cm x 3cm open area on right lateral lower leg d/t a fall at home. Pt was treating it with bactroban ointment. As per surgical consult a few days ago - right leg was wrapped with SABINO from base of toes to below knee. Covered the open area with ABD pad. Wound care will continue.
--- NOTE | 2016-09-12 17:08 | NUR ---
PT RESTING IN BED, DENIES NEEDS. WCTM.
[2016-09-12 18:59] VITALS: BP 117/53
--- NOTE | 2016-09-12 19:30 | NUR ---
LYING IN BED WITH EYES OPEN AND TV ON. A/A/OX4. DRESSING TO RIGHT LOWER EXTREMITY. CLEAN, DRY AND INTACT. CALL LIGHT AND OVERBED TABLE IN REACH. BED ALARM CONTINUES TO GO OFF. WILL REPORT BED ISSUES. ABLE TO VOICE NEEDS. NO COMPLAINTS VOICED.
--- NOTE | 2016-09-12 22:48 | NUR ---
RESTING IN BED WITH EYES OPEN AND TV ON. COMPLAINED OF LEG AND BACK PAIN EARLIER AND REQUESTED 2 NORCO. NORCO GIVEN PER ORDERS. DRESSING CHANGED THIS SHIFT.SMALL AMOUNT OF DRAINAGE ON ABD PAD. YELLOW IN COLOR. NO RASH OR ODER TO ABDOMNAL FOLD. CALL LIGHT AND BEDSIDE TABLE IN REACH.
[2016-09-12 23:47] VITALS: BP 117/53
--- NOTE | 2016-09-13 03:57 | NUR ---
LYING IN BED WITH EYES CLOSED AT THIS TIME. REQUESTED TO BE PULLED UP IN BED. ABLE TO USE ONE LEG TO ASSIST AND BED RAILS USED TO ASSIST. 3 STAFF ASSISTED TO PULL HIM UP IN THE BED. URINAL EMPTIED WITH 300ML OF URINE AND CLEANED. CONTINUES ON CONTACT ISOLATION RELATED TO HX OF MRSA.CALL LIGHT AND OVERBED TABLE IN REACH. DENIES ANY PAIN.
[2016-09-13 06:12] LABS: CALC OSMOLALITY 274 mosm/kg (275-300); CALCIUM 8.1 mg/dL (8.5-10.1); CARBON DIOXIDE 29.6 mmol/L (21.0-32.0); CHLORIDE - SERUM 104 mmol/L (98-107); CREATININE - SERUM 0.8 mg/dL (0.6-1.3); GLUCOSE 94 mg/dL (74-106); POTASSIUM - SERUM 4.2 mmol/L (3.5-5.1); SODIUM 138 mmol/L (136-145); UREA NITROGEN 10 mg/dL (7-18); eGFR NON AFRICAN AMERICAN > 90 mL/min (90-120)
[2016-09-13 06:20] LABS: BASOPHILS 1.9 % (0-2); EOSINOPHILS 13.2 % (0-7); HEMATOCRIT 31.9 % (42.0-54.0); HEMOGLOBIN 10.1 g/dL (13.5-17.5); IMMATURE GRANULOCYTES 0.3 % (0-5); LYMPHOCYTES 19.2 % (15-50); MCH 26.9 pg (26.0-34.0); MCHC 31.7 g/dL (31.0-37.0); MCV 85.1 fL (80.0-100.0); MEAN PLATELET VOLUME 10.2 fL (7.4-10.4); MONOCYTES 20.1 % (2-11); NEUTROPHILS 45.3 % (40-80); PLATELET COUNT 158 10x3/uL (130-400); RBC 3.75 10x6/uL (4.20-6.10); RDW 18.4 % (11.5-14.5); WBC 3.6 10x3/uL (4.8-10.8)
[2016-09-13 08:04] VITALS: BP 136/66
--- NOTE | 2016-09-13 08:30 | NUR ---
PT AM MEDS ADMINISTERED. PT DENIES NEEDS. WCTM. BED LOW. CL IN REACH.
--- NOTE | 2016-09-13 12:15 | NUR ---
PT EATING LUNCH, DENIES NEEDS. CL IN REACH.
--- NOTE | 2016-09-13 16:34 | NUR ---
PT RESTING IN BED, EYES CLOSED. BED LOW. CL IN REACH.
--- NOTE | 2016-09-13 19:30 | NUR ---
IN BED ON SPECIALTY AIR BED. HOB UP 30 DEGREES. EMPTIED 200ML FROM BEDSIDE URINAL. DENIES CURRENT NEEDS.
--- NOTE | 2016-09-13 20:25 | NUR ---
IN BED, AWAKE. NO C/O AT THIS TIME.
--- NOTE | 2016-09-13 21:50 | NUR ---
C/O PAIN LEVEL OF 7/10 IN BILAT LE'S. GAVE PATIENT ANNA X2 TABS PO.
[2016-09-13 23:00] VITALS: BP 128/54
--- NOTE | 2016-09-13 23:00 | NUR ---
ASSESSMENT, VS AND HS MEDS COMPLETE. WOUND CARE COMPLETE. DENIES CURRENT NEEDS.
--- NOTE | 2016-09-14 00:10 | NUR ---
RESTING QUIETLY IN BED, EYES CLOSED.
--- NOTE | 2016-09-14 02:00 | NUR ---
EMPTIED 300 ML YELLOW URINE FROM BEDSIDE URINAL. PROVIDED PATIENT WITH A FRESH CUP OF ICE WATER. DENIES FURTHER NEEDS.
--- NOTE | 2016-09-14 04:10 | NUR ---
IN BED, EYES CLOSED. RESPIRATIONS UNLABORED.
--- NOTE | 2016-09-14 05:35 | NUR ---
RESTING IN BED, EYES CLOSED.
--- NOTE | 2016-09-14 07:30 | NUR ---
PT IS RESTING IN BED WITH EYES OPEN. ALERT AND ORIENTED X 3. PT ASSISTED TO USE THE BEDPAN. LARGE SOFT BM NOTED. AMANDO CARE DONE. CONTACT PRECAUTIONS OBSERVED. SR'S ARE UP X 3 IN BED. CALL LIGHT AND BEDSIDE TABLE ARE WITHIN EASY REACH.
--- NOTE | 2016-09-14 09:29 | NUR ---
DRESSING TO RIGHT LOWER LEG CHANGED. SITE CLEANSED WITH WOUND FLOOR GRINDER AND NEW DRESSING APPLIED. LARGE AMOUNT OF LOTION APPLIED TO DRY SKIN ON THE REST OF THE FOOT UP TO HIS KNEE.
--- NOTE | 2016-09-14 10:14 | NUR ---
RESTING QUIETLY IN BED.CL IN REACH.
--- NOTE | 2016-09-14 13:34 | NUR ---
PT STATED HE WAS UNABLE TO CONTINUE THERAPY DUE TO EXHAUSTION. ASSISTED TO BED USING A WALKER AND 2 ASSISTANTS. PT CONTINUING LEG THERAPY IN BED.
--- NOTE | 2016-09-14 17:13 | NUR ---
PT IS RESTING IN BED AWAITING SUPPER. NO NEEDS VOICED.
--- NOTE | 2016-09-14 19:00 | NUR ---
EMPTIED 600 ML FROM PATIENT'S BEDSIDE URINAL. REMOVED HIS DINNER TRAY TO RETURN CART. PATIENT DENIES FURTHER NEEDS. CONTINUES ON [facility] 2 BED.
--- NOTE | 2016-09-14 20:50 | NUR ---
IN BED, AWAKE. EMPTIED 650ML FROM BEDSIDE URINAL, MAKING 1250 ML SO FAR THIS SHIFT. SAYS HE DRANK A LOT MORE TODAY. DENIES CURRENT NEEDS.
[2016-09-14 22:50] VITALS: BP 121/64
--- NOTE | 2016-09-14 22:50 | NUR ---
ASSESSMENT AND HS MEDS COMPLETE. GAVE PATIENT NORCO 10/325 X2 TABS PO FOR PAIN LEVEL OF 7/10 IN BILAT LEGS. WOPICAL MEDS APPLIED. DRESSING TO RIGHT LE WAS CHANGED. SEE DRESSING CHANGE P/I. GAVE PATIENT A CUP OF SHERBET PER HIS REQUEST. DENIES FURTHER NEEDS.
--- NOTE | 2016-09-14 23:45 | NUR ---
PATIENT AWAKE AGAIN. EMPTIED 275 ML FROM BEDSIDE URINAL. NO C/O AT THIS TIME.
--- NOTE | 2016-09-15 02:35 | NUR ---
CONTINUES IN BED, RESTING QUIETLY WITH HOB UP 20 DEGREES. EMPTIED 225ML LIGHT YELLOW URINE FROM HIS BEDSIDE URINAL.
--- NOTE | 2016-09-15 02:35 | NUR ---
RESTING QUIETLY ON LEFT SIDE. EMPTIED 400ML CLEAR PALE YELLOW URINE FROM BEDSIDE URINAL.
--- NOTE | 2016-09-15 04:30 | NUR ---
PATIENT AWAKE. HOB NOW UP 45 DEGREES. EMPTIED 275ML FROM BEDSIDE URINAL.
--- NOTE | 2016-09-15 07:28 | NUR ---
PT IS RESTING IN BED WITH EYES OPEN. ALERT AND ORIENTED X 4. DENIES ACUTE DISCMFORT AT THIS TIME. VSS. PT ASSISTED TO PULL UP IN BED WITH 2 PERSON MAX ASSIST. DRESSING TO RLE IS CDI. SR'S ARE UP X 3 IN BED. CALL LIGHT AND BEDSIDE TABLE ARE WITHIN EASY REACH.
--- NOTE | 2016-09-15 09:29 | NUR ---
PT ASSISTED TO USE BEDPAN. LARGE SOFT BM NOTED. AMANDO CARE GIVEN. DRESSING TO RLE CHANGED. MOD AMOUNT OF BLEEDING NOTED DURING DRESSING CHANGE. PT DENIES ANY PAIN. NEW DRESSING APPLIED, AND LOTION APPLIED TO THE REMAINDER OF LEG AND FOOT, WHICH IS EXTREMELY DRY AND SCALY.
[2016-09-15 09:51] VITALS: BP 123/81
--- NOTE | 2016-09-15 09:56 | NUR ---
IN BED RESTING QUIETLY.CL IN REACH.
--- NOTE | 2016-09-15 12:12 | NUR ---
PT IS RESTING IN BED WITH EYES OPEN. FEEDING SELF LUNCH. NO COMPLAINT VOICED.
--- NOTE | 2016-09-15 15:37 | NUR ---
PT IS RESTING QUIETLY IN BED WITH EYES CLOSED. NO ACUTE DISTRESS NOTED.
--- NOTE | 2016-09-15 17:38 | NUR ---
PT FEEDING SELF SUPPER IN BED. NO DIFFICULTY NOTED. VISITORS IN ROOM.
[2016-09-15 19:32] VITALS: BP 127/54
--- NOTE | 2016-09-15 19:45 | NUR ---
PT C/O OF ITCHY BACK AND REQUESTED LOTION. APPLIED LOTION TO BACK. PT ALERT AND ORIENTED, CONVERSIVE.
--- NOTE | 2016-09-15 22:00 | NUR ---
PT TOLERATED THE DRESSING CHANGE. PT HAS MINIMAL STRENGTH TO LIFE LEG.
--- NOTE | 2016-09-16 04:30 | NUR ---
PT RESTING QUIETLY, NO S/S OF ACUTE DISTRESS.
--- NOTE | 2016-09-16 07:45 | NUR ---
CONTACT ISOLATION MAINTAINED.
--- NOTE | 2016-09-16 08:00 | NUR ---
PATIENT IS ALERT/ORIENT X4. CALL LIGHT WITHIN REACH. ON A KINAIR MATTRESS. TURNES WITH ASST OF 3 TO USE BEDPAN.
[2016-09-16 08:18] VITALS: BP 127/68
--- NOTE | 2016-09-16 09:59 | NUR ---
DR. Espinoza HAWLEY INTO SEE PATIENT. NEW ORDERS RECEIVED
--- NOTE | 2016-09-16 11:52 | NUR ---
PATIENT DOWN IN REHAB ROOM. WORKING WITH PHYSICAL THERAPIST. ISOLATION PRECAUSIONS MAINTAINED.
--- NOTE | 2016-09-16 12:16 | NUR ---
PATIENT IS ADMITTED TO REHAB FROM ACUTE FLOOR. PCP IS DR. ORTIZ AND PHARMACY IS [facility]. DME AT HOME : WALKER, WHEELCHAIR, BSC, CANE. DISCHARGE PLANS ARE FOR PATIENT TO RETURN HOME WITH HIS SPOUSE. WILL CONTINUE TO FOLLOW WITH PATIENT
--- NOTE | 2016-09-16 15:29 | NUR ---
PATIENT BACK FROM THERAPY AND HELPED INTO BED. MAX ASST OF THREE. RIGHT LEG VERY SWOLLEN TO ABOUT TWICE THE SIZE IT WAS BEFORE PATIENT GOT OUT OF BED. PITTING EDEMA 4++. PATEINT STATES DRESSING IS TOO TIGHT TO LEG. BLOODING DRAINAGE SHOWING THROUGH DRESSING. DRESSING CHANGED BY THIS NURSE.
--- NOTE | 2016-09-16 16:00 | NUR ---
PATIENT ADMITTED FROM MED SURG II WITH STAFF. BROUGHT DOWN IN WHEELCHAIR. DIAG: DECOMPENSTED CHF. PATIENT IS ALERT/ORIENT. MOD ASST WITH HELP TO BED. CALL LIGHT WITHIN REACH. ORIENT TO ROOM.
--- NOTE | 2016-09-16 19:30 | NUR ---
RESTING QUIETLY, NO S/S OF ACUTE DISTRESS, RESPIRATIONS REGULAR AND UNLABORED. PT WATCHING TV, EMPTIED URINAL AND PROVIDED SALTINES AND FRESH ICE WATER.
--- NOTE | 2016-09-16 21:45 | NUR ---
DRESSING CHANGED COMPLETE, PT TOLERATED WELL. PT STATES HIS LEG COLOR AND SIZE IS CONSISTENT WITH WHAT IT USUALLY IS.
--- NOTE | 2016-09-17 05:30 | NUR ---
PT RESTING QUIETLY, USES URINAL THROUGHOUT NIGHT, PT ATE A POPCYCLE, BED ALARM SOUNDED AND FIXED WITH PUSHING BUTTONS.
--- NOTE | 2016-09-17 08:20 | NUR ---
PT REQ AND REC'D PRN PAIN MEDICATION WITH AM MEDICATIONS. PT DRESSING TO RLE CHANGED. MINIMAL DRAINAGE NOTED. PT ALSO ASSISTED TO BR AT THIS TIME. PT HAD SM BM. DAYLIN APPLIED TO BOTTOM AND NYSTATIN APPLIED TO ABD FOLDS AND BACK. PT SITTING UP IN WC WAITING FOR THEREAPY. WCTM.
--- NOTE | 2016-09-17 09:24 | NUR ---
Nutrition Follow Up: Pt is eating 100% meal avg on a diabetic diet. He is receiving Juan Pablo BID. +BM 09/16/16. No new wt to assess. Meds and labs reviewed. Rec continue current diet, supplement regimen. RD following.
--- NOTE | 2016-09-17 10:26 | NUR ---
PT IN THERAPY. TOLERATING WELL. WCTM.
--- NOTE | 2016-09-17 15:00 | NUR ---
PT MIDLINE CATHETER IN LEFT UPPER ARM DC'D INTACT AT 16CM LONG. PT TOLERATED WELL. MINIMAL DRAINAGE NOTED. INSERTION POINT COVERED WITH 4X4'S AND SECURED WITH TAPE. WCTM.
--- NOTE | 2016-09-17 18:14 | NUR ---
PT EATING DINNER, DENIES NEEDS. WCTM.
--- NOTE | 2016-09-17 18:31 | NUR ---
RESTING QUIETLY IN BED. NO S/S DISTRESS. CALL LIGHT IN REACH
[2016-09-17 21:15] VITALS: BP 133/52
--- NOTE | 2016-09-17 22:00 | NUR ---
DRESSING CHANGE TO LEFT LOWER LEG, PT TOLERATED WELL.
--- NOTE | 2016-09-17 23:40 | NUR ---
PT REQUESTED POPCYCLE, PROVIDED. PT CONVERSIVE, DENIES NEEDS.
--- NOTE | 2016-09-18 04:12 | NUR ---
PT RESTING QUIETLY IN BED, NO S/S OF ACUTE DISTRESS. AIR MATTRESS FUNCTIONING WITHOUT ALARMING.
[2016-09-18 07:41] LABS: HEMATOCRIT 30.5 % (42.0-54.0); HEMOGLOBIN 9.4 g/dL (13.5-17.5); MCH 26.9 pg (26.0-34.0); MCHC 30.8 g/dL (31.0-37.0); MCV 87.4 fL (80.0-100.0); MEAN PLATELET VOLUME 9.2 fL (7.4-10.4); PLATELET COUNT 165 10x3/uL (130-400); RBC 3.49 10x6/uL (4.20-6.10); RDW 18.7 % (11.5-14.5); WBC 3.3 10x3/uL (4.8-10.8)
--- NOTE | 2016-09-18 08:00 | NUR ---
PATIENT IS ALERT/ORIENT X4. ON A BARIACTIC BED. CALL LIGHT WITHIN REACH. VOICES NO NEEDS. CONTACT ISOLATION FOR ECOLI IN URINE AND IN WOUND.
[2016-09-18 08:03] LABS: CALC OSMOLALITY 276 mosm/kg (275-300); CALCIUM 7.9 mg/dL (8.5-10.1); CARBON DIOXIDE 29.5 mmol/L (21.0-32.0); CHLORIDE - SERUM 105 mmol/L (98-107); CREATININE - SERUM 0.8 mg/dL (0.6-1.3); GLUCOSE 82 mg/dL (74-106); POTASSIUM - SERUM 3.8 mmol/L (3.5-5.1); SODIUM 139 mmol/L (136-145); UREA NITROGEN 12 mg/dL (7-18); eGFR NON AFRICAN AMERICAN > 90 mL/min (90-120)
--- NOTE | 2016-09-18 08:30 | NUR ---
PRN NORCO GIVEN FOR RIGHT LEG PAIN. DR. Espinoza HAWLEY HERE TO SEE PATIENT. NEW ORDERS RECEIVED
[2016-09-18 08:31] LABS: ANISOCYTOSIS 1+; EOSINOPHILS 19 % (0-7); HYPOCHROMASIA OCC; LYMPHOCYTES 22 % (15-50); MONOCYTES 20 % (2-11); NEUTROPHILS 36 % (40-80); PLATELET ESTIMATE NORMAL
[2016-09-18 08:53] VITALS: BP 135/65
--- NOTE | 2016-09-18 10:00 | NUR ---
SHOWER GIVEN WITH HELP OF OCCUPATIONAL THERAPIST AND NURSE ASST. DRESSING TO RIGHT LEG CHANGED PER ORDER.
--- NOTE | 2016-09-18 14:42 | NUR ---
PATIENT HLEPED BACK TO BED. MAX ASST OF THREE.
--- NOTE | 2016-09-18 14:53 | NUR ---
CARE TEAM MEETING: PATIENT PROGRESSING IN THERAPY, DISCHARGE PLANS ARE FOR PATIENT TO RETURN HOME WHEN DISCHARGED. TENATIVE DISCHARGE DATE IS 09/27/16. WILL CONTINUE TO FOLLOW WITH PATIENT
--- NOTE | 2016-09-18 17:41 | NUR ---
resting quietly.cl in reach.
--- NOTE | 2016-09-18 19:30 | NUR ---
PT RESTING QUIETLY, NO S/S OF ACUTE DISTRESS, RESPIRATIONS REGULAR AND UNLABORED.
[2016-09-18 20:11] VITALS: BP 121/53
--- NOTE | 2016-09-18 21:15 | NUR ---
TOLERATED DRESSING CHANGE, PT UNABLE TO HOLD LEG UP, LEG PROPPED ON KNEE WITH MAX ASSIST. PT IS CONVERSIVE.
--- NOTE | 2016-09-19 01:00 | NUR ---
PT RESTING QUIETLY, NO S/S OF ACUTE DISTRESS, RESPIRATIONS REGULAR AND UNLABORED.
--- NOTE | 2016-09-19 04:11 | NUR ---
PT RESTING QUIETLY, NO S/S OF ACUTE DISTRESS. PT VOIDS PER URINAL.
--- NOTE | 2016-09-19 08:00 | NUR ---
EATING BREAKFAST.CL IN REACH.
--- NOTE | 2016-09-19 08:00 | NUR ---
PT ASSISTED UP TO BATHROOM AFTER FEEDING SELF BREAKFAST IN BED. TRANSFERRED WITH 2 PERSON MOD ASSIST. DRESSING TO RLE IS CDI. PT VOICED COMPLAINT OF LEG PAIN LEVEL OF 7. WILL MEDICATE FELIPE. SR'S ARE UP X 3 WHILE IN BED. CALL LIGHT AND BEDSIDE TABLE ARE WITHIN EASY REACH.
[2016-09-19 08:46] VITALS: BP 136/58
--- NOTE | 2016-09-19 09:46 | NUR ---
PT IS PARTICIPATING IN THERAPY AT THIS TIME.
--- NOTE | 2016-09-19 11:59 | NUR ---
PT RESTING IN HIS ROOM AWAITING LUNCH. NO ACUTE DISTRESS NOTED.
--- NOTE | 2016-09-19 14:19 | NUR ---
RESTING QUIETLY IN BED WITH EYES CLOSED. RESPS ARE EVEN AND UNLABORED. NO ACUTE DISTRESS NOTED.
--- NOTE | 2016-09-19 16:35 | NUR ---
PT IS RESTING IN BED WATCHING TV. NO NEEDS VOICED.
[2016-09-19 19:00] VITALS: BP 100/44
--- NOTE | 2016-09-19 19:15 | NUR ---
IN BED ON SALVADOR ILDEFONSO 2 BED. DENIES CURRENT NEEDS.
--- NOTE | 2016-09-19 21:25 | NUR ---
C/O PAIN LEVEL OF 10 IN BILAT LE'S. GAVE PATIENT ANNA X2 TABS PO. TOLD HIM I WILL RETURN TO ASSESS HIM AND CHANGE HIS DRESSING.
--- NOTE | 2016-09-19 22:50 | NUR ---
ASSESSMENT COMPLETE. CHANGED RIGHT LE DRESSING PER CURRENT ORDERS. SEE WOUND CARE P/I.
--- NOTE | 2016-09-20 | NUR ---
RESTING QUEITLY IN BED, HOB UP 45 DEGREES, EYES CLOSED. NO DISTRESS NOTED.
--- NOTE | 2016-09-20 02:15 | NUR ---
RESTING IN BED, EYES CLOSED. EMPTIED 450ML FROM BEDSIDE URINAL.
--- NOTE | 2016-09-20 04:40 | NUR ---
RESTING IN BED, HOB UP 45 DEGREES. RESPIRING QUIETLY. EMPTIED 250ML FROM HIS BEDSIDE URINAL.
--- NOTE | 2016-09-20 05:35 | NUR ---
GAVE PATIENT SCHEDULED MEDS. DENIES CURRENT NEEDS.
[2016-09-20 07:18] LABS: BASOPHILS 1.3 % (0-2); HEMATOCRIT 30.9 % (42.0-54.0); HEMOGLOBIN 9.5 g/dL (13.5-17.5); LYMPHOCYTES 24.7 % (15-50); MCH 26.6 pg (26.0-34.0); MCHC 30.7 g/dL (31.0-37.0); MCV 86.6 fL (80.0-100.0); MEAN PLATELET VOLUME 8.7 fL (7.4-10.4); MONOCYTES 21.1 % (2-11); NEUTROPHILS 39.9 % (40-80); PLATELET COUNT 142 10x3/uL (130-400); RBC 3.57 10x6/uL (4.20-6.10); RDW 18.4 % (11.5-14.5); WBC 3.1 10x3/uL (4.8-10.8)
[2016-09-20 07:42] LABS: CALC OSMOLALITY 275 mosm/kg (275-300); CALCIUM 8.3 mg/dL (8.5-10.1); CARBON DIOXIDE 29.9 mmol/L (21.0-32.0); CHLORIDE - SERUM 105 mmol/L (98-107); CREATININE - SERUM 0.9 mg/dL (0.6-1.3); GLUCOSE 94 mg/dL (74-106); SODIUM 138 mmol/L (136-145); UREA NITROGEN 13 mg/dL (7-18); eGFR NON AFRICAN AMERICAN > 90 mL/min (90-120)
[2016-09-20 08:00] VITALS: BP 132/56
--- NOTE | 2016-09-20 08:00 | NUR ---
PT EATING BREAKFAST, DENIES NEEDS.
--- NOTE | 2016-09-20 09:10 | NUR ---
PT REQ AND REC'D PRN PAIN MEDICATION. PT USED BEDPAN, HAD MED BM, SOFT AND FORMED. PT DENIES FURTHER NEEDS AT THIS TIME. BED LOW. C ZE REACH.
--- NOTE | 2016-09-20 12:00 | NUR ---
PT EATING LUNCH, DENIES NEEDS. WCTM.
--- NOTE | 2016-09-20 18:27 | NUR ---
LINING STAMPER CALLED ABOUT BED NOT INFLATING. CONFIRMATION CODE IS [id number]. TECH SHOULD BE BY THIS EVENING.
--- NOTE | 2016-09-20 20:20 | NUR ---
EMPTIED PATIENT'S URINAL. DENIES CURRENT NEEDS.
[2016-09-20 22:35] VITALS: BP 118/60
--- NOTE | 2016-09-20 22:35 | NUR ---
GAVE PATIENT NORCO 10/325 X2 TABS PO FOR BILAT LE PAIN OF LEVEL 7/10. TOLD PATIENT I WILL RETURN TO ASSESS HIM AND PERFORM HIS RIGHT LE DRESSING AND APPLY HIS TOPICAL MEDS.
--- NOTE | 2016-09-20 23:20 | NUR ---
RIGHT LEG DRESSING CHANGED. SEE WOUND CARE P/I. CALMOSEPTINE APPLIED TO BUTTOCKS ABRASIONS. NYSTATIN APPLIED PROPHYLACTICALLY TO GROINS AND PANNICULAR FOLD. NO REDNESS NOTED.
--- NOTE | 2016-09-21 00:10 | NUR ---
RESTING IN BED, EYES CLOSED.
--- NOTE | 2016-09-21 02:00 | NUR ---
EMPTIED 700ML FROM PATIENT'S BEDSIDE URINAL. GAVE HIM A POPSICLE PER HIS REQUEST. DENIES FURTHER NEEDS.
--- NOTE | 2016-09-21 04:45 | NUR ---
IN BED, EYES CLOSED. RESPIRATION UNLABORED. EMPTIED 300ML FROM BEDSIDE URINAL.
--- NOTE | 2016-09-21 07:21 | NUR ---
RESTING QUIETLY IN BED. EYES CLOSED. CALL LIGHT IN REACH.
--- NOTE | 2016-09-21 08:00 | NUR ---
PATIENT IS ALERT/ORIENT X4. ON A BARIMAX II BED. CALL LIGHT WITHIN REACH. HELPED ONTO BEDPAN BY THIS NURSE. HAD A LARGE BOWEL MOVEMENT. PATIENT IS ABLE TO TURN FROM SIDE TO SIDE IN BED WITH MODERATE AMOUNT OF HELP. MAX ASST TO GET OUT OF BED INTO A WHEELCHAIR.
--- NOTE | 2016-09-21 09:00 | NUR ---
PATIENT REMAINS IN CONTACT ISOLATION.
[2016-09-21 09:25] VITALS: BP 124/54
--- NOTE | 2016-09-21 10:24 | NUR ---
DRESSING CHANGED TO RIGHT LATERAL LEG. MODERATE AMOUNT OF BLOODY DRAINAGE NOTED. HEALING NOTED
--- NOTE | 2016-09-21 14:40 | NUR ---
PRN NORCO GIVEN FOR RIGHT LOWER LEG PAIN PER PATIENT REQUEST
--- NOTE | 2016-09-21 18:45 | NUR ---
IN BED, AWAKE. NO C/O AT THIS TIME.
--- NOTE | 2016-09-21 20:25 | NUR ---
IN BED, AWAKE. DENIES NEEDS.
[2016-09-21 20:27] VITALS: BP 116/56
--- NOTE | 2016-09-21 22:00 | NUR ---
ASSESSMENT AND HS MEDS GIVEN. ALSO GAVE PATIENT NORCO 10/325 X2 TABS PO FOR PAIN LEVEL OF 6/10 IN BILAT LE'S. CHANGED DRESSING TO RIGHT LE. SEE WOUND CARE P/I.
--- NOTE | 2016-09-21 23:50 | NUR ---
RESTING QUEITLY IN BED, EYES CLOSED.
--- NOTE | 2016-09-22 02:15 | NUR ---
RESTING QUIETLY IN BED, HOB UP 30 DEGREES. EMPTIED 150ML FROM BEDSIDE URINAL.
--- NOTE | 2016-09-22 04:45 | NUR ---
REMAINS IN BED, EYES CLOSED. RESTING QUIETLY.
--- NOTE | 2016-09-22 05:57 | NUR ---
GAVE PATIENT SCHEDULED MEDS. EMPTIED 250ML FROM BEDSIDE URINAL. NO COMPLAINTS AT THIS TIME.
--- NOTE | 2016-09-22 07:03 | NUR ---
RESTING QUIETLY IN BED. NO S/S DISTRESS OR NEEDS. CALL LIGHT IN REACH.
[2016-09-22 08:00] VITALS: BP 119/60
--- NOTE | 2016-09-22 09:17 | NUR ---
ALERT/ORIENT X4. CALL LIGHT WITHIN REACH. PRN PAIN MEDICATION GIVEN FOR RIGHT LOWER LEG PAIN/DISC. BARIMAXX MATTRESS ON BED.
--- NOTE | 2016-09-22 09:39 | NUR ---
DRESSING CHANGED PER ORDERS TO RIGHT LOWER LEG. HEALING NOTED
--- NOTE | 2016-09-22 13:47 | NUR ---
PATIENT REMAINS IN CONTACT ISOLATION.
--- NOTE | 2016-09-22 15:44 | NUR ---
PATIENT WASHED UP IN BED.
--- NOTE | 2016-09-22 17:15 | NUR ---
PRN NORCO GIVEN FOR RIGHT LOWER LEG PAIN/DISC.
--- NOTE | 2016-09-22 19:45 | NUR ---
PM ROUNDS MADE, INFORMED PT I WILL BE BACK IN A FEW MINUTES TO DO ASSESSMENT, PT VERBALIZES UNDERSTANDING, REQUESTS JEREMY MARTÍNEZ WHEN I COME BACK
[2016-09-22 20:00] VITALS: BP 116/56
--- NOTE | 2016-09-22 20:00 | NUR ---
ASSESSMENT PER FLOW SHEET, VS OBTAINED, PT REPORTS FLATUS, BM TODAY AND VOIDING VIA URINAL WITH NO DIFFICULTY, PT DENIES PAIN AT THIS TIME, JEREMY MARTÍNEZ PROVIDED, DENIES FURTHER NEEDS
--- NOTE | 2016-09-22 21:25 | NUR ---
DRESSING CHANGE PER THIS RN AND HYUN RAYA, RN, PT TOLERATED WELL
--- NOTE | 2016-09-22 21:50 | NUR ---
HYUN RAYA RN ADM PAIN MED PO PER MD ORDERS, SEE EMAR
--- NOTE | 2016-09-22 22:30 | NUR ---
PT RESTING WITH EYES CLOSED, RESP QUIET, NO DISTRESS NOTED, LEFT UNDISTURBED AT THIS TIME
--- NOTE | 2016-09-22 23:18 | NUR ---
PT COMPUTER OPERATIONS MANAGER, EMPTIED 600 MLS OF YELLOW URINE FROM URINAL, PT REPORTS THAT WAS 3 VOIDS, PT DENIES FURTHER NEEDS OR PAIN
--- NOTE | 2016-09-23 00:37 | NUR ---
PT RESTING WITH EYES CLOSED, RESP QUIET, NO DISTRESS NOTED, LEFT UNDISTURBED AT THIS TIME
--- NOTE | 2016-09-23 02:40 | NUR ---
PT RESTING WITH EYES CLOSED, RESP QUIET, NO DISTRESS NOTED, LEFT UNDISTURBED AT THIS TIME
--- NOTE | 2016-09-23 04:25 | NUR ---
PT RESTING WITH EYES CLOSED, RESP QUIET, NO DISTRESS NOTED, LEFT UNDISTURBED AT THIS TIME
--- NOTE | 2016-09-23 06:05 | NUR ---
PT PLACED ON BED REICH, HAD LARGE BROWN FORMED BM, PT REMOVED FROM BED REICH, THIS RN AND HYUN RAYA RN, CLEANED PT UP WITH WET WARM WIPES, CALOMESEPTINE APPLIED TO COCCYX, CLEAN DRAW SHEET AND BLUE CHUX PLACED, EMPTIED 200 MLS OF DARK YELLOW URINE FROM URINAL, ADM 0600 MEDS PER MD ORDERS, FRESH H20 SERVED, PT DENIES FURTHER NEEDS
[2016-09-23 06:44] LABS: CALC OSMOLALITY 274 mosm/kg (275-300); CALCIUM 8.1 mg/dL (8.5-10.1); CARBON DIOXIDE 26.9 mmol/L (21.0-32.0); CHLORIDE - SERUM 104 mmol/L (98-107); CREATININE - SERUM 0.7 mg/dL (0.6-1.3); GLUCOSE 92 mg/dL (74-106); POTASSIUM - SERUM 4.2 mmol/L (3.5-5.1); SODIUM 137 mmol/L (136-145); UREA NITROGEN 15 mg/dL (7-18); eGFR NON AFRICAN AMERICAN > 90 mL/min (90-120)
--- NOTE | 2016-09-23 06:46 | NUR ---
SHIFT REPORT TO DAY SHIFT
[2016-09-23 07:43] LABS: BASOPHILS 1.2 % (0-2); EOSINOPHILS 13.4 % (0-7); HEMATOCRIT 31.2 % (42.0-54.0); HEMOGLOBIN 9.8 g/dL (13.5-17.5); LYMPHOCYTES 23.6 % (15-50); MCH 26.9 pg (26.0-34.0); MCHC 31.4 g/dL (31.0-37.0); MCV 85.7 fL (80.0-100.0); MEAN PLATELET VOLUME 8.1 fL (7.4-10.4); MONOCYTES 18.8 % (2-11); PLATELET COUNT 118 10x3/uL (130-400); RBC 3.64 10x6/uL (4.20-6.10); WBC 3.4 10x3/uL (4.8-10.8)
[2016-09-23 07:55] VITALS: BP 136/69
--- NOTE | 2016-09-23 08:50 | NUR ---
PT REQ AND REC'D PRN PAIN MEDICATION. WCTM. BED LOW. CL IN REACH.
--- NOTE | 2016-09-23 11:10 | NUR ---
PT DRESSING TO RLE CHANGED. BLISTER HAD MODERATE AMOUNT OF SANGUENOUS DRAINAGE. CLEANSED WITH SAF CLEANSE. APPLIED NON ADHERENT PAD, ABD, WRAPPED WITH KERLIX AND SABINO. WCTM. O
--- NOTE | 2016-09-23 12:45 | NUR ---
PT SITTING UP IN WC. PT REQ AND REC'D PRN PAIN MEDICATION. WCTM.
--- NOTE | 2016-09-23 17:53 | NUR ---
PT REQ AND REC'D PRN PAIN MEDICATION. PT EATING DINNER AND DENIES FURTHER NEEDS. WCTM.
[2016-09-23 18:48] VITALS: BP 134/70
--- NOTE | 2016-09-23 21:10 | NUR ---
PT STATED HE DIDN'T THINK HIS DRESSING NEEDED TO BE CHANGED. ENCOURAGED PT TO ALLOW DRESSING CHANGE TO REDUCE THE ADHESION OF DRESSING TO WOUND. PT CONSENTED.
--- NOTE | 2016-09-24 01:15 | NUR ---
PT RESTING QUIETLY, EYES CLOSED, RESPIRATIONS REGULAR AND UNLABORED.
--- NOTE | 2016-09-24 02:05 | NUR ---
PT IN THERAPY. TEN SPOKE INFECTION CONTROL NURSE AND I SPOKE WIHT DR HAWLEY. PT ISOLATION REMOVED DUE TO WOUND CULTURE BEING NEGATIVE FOR MRSA. WCTM.
--- NOTE | 2016-09-24 06:15 | NUR ---
PT AWAKE, STATED HE SLEPT OK, STATES IT IS BETTER NOW THAT HIS BLOWER IN THE BED WAS REPLACED. PT CONVERSIVE.
[2016-09-24 07:40] VITALS: BP 136/58
--- NOTE | 2016-09-24 08:11 | NUR ---
PT SITTING UP IN BED EATING BREAKFAST, DENIESNEEDS.
--- NOTE | 2016-09-24 10:14 | NUR ---
PT SHOWERED WITH OT. NEW DRESSING APPLIED. BACTROBAN OINTMENT APPLIED TO WOUND. NON ADHERENT DRESSING APPLIED, WRAPPED WITH KERLIX AND WRAPPED WITH SABINO BANDAGE. PT CURRNETLY SITTING UP IN WHEELCHAIR FOR MORE THERAPY. WCTM.
--- NOTE | 2016-09-24 12:00 | NUR ---
PT EATING LUNCH, DENIES NEEDS. WCTM.
--- NOTE | 2016-09-24 15:36 | NUR ---
PT REQ AND REC'D PRN PAIN MEDICATION. PT CURRENTLY RESTING IN BED. WCTM.
--- NOTE | 2016-09-24 17:56 | NUR ---
PT EATING DINNER, FAMILY AT BEDSIDE. PT DENIES NEEDS. WCTM.
[2016-09-24 19:00] VITALS: BP 129/65
--- NOTE | 2016-09-24 19:15 | NUR ---
IN BED, AWAKE. EMPTIED 275ML FROM BEDSIDE URINAL.
--- NOTE | 2016-09-24 21:30 | NUR ---
IN BED, AWAKE. DENIES NEEDS.
--- NOTE | 2016-09-24 22:05 | NUR ---
C/O PAIN LEVEL OF 7/10 IN BILAT LOWER LEGS. GAVE PATIENT NORCO X2 TABS PO FOR HIS PAIN. CECILIA HIM I WILL RETURN FOR HIS ASSESSMENT AND TO CHANGE HIS RIGHT LE DRESSING AFTER PASSING MEDS TO MY LAST 2 PATIENTS.
--- NOTE | 2016-09-24 22:45 | NUR ---
ASSESSMENT COMPLETE. RIGHT LE DRESSING CHANGED. SEE DRESSING CHANGE P/I. NYSTATIN PWD APPLIED UNDER ABDOMINAL FOLD WHICH NOW IS SHOWING SOME PINK RASHINESS THAT WAS NOT THERE WHEN I APPLIED NYSTATIN TO IT ON THE NIGHT OF 09/21. APPLIED CALMOSEPTINE TO RESOLVING AREA OF MILD SHEAR ABRASION TO BUTTOCKS. PATIENT DENIES FURTHER NEEDS.
--- NOTE | 2016-09-25 00:40 | NUR ---
RESTING QUIETLY IN BED, EYES CLOSED. WAS GOING TO EMPTY URINAL, BUT APPARENTLY PATIENT IS SLEEPING WITH IT BETWEEN HIS LEGS. WILL CHECK AGAIN AT NEXT ROUNDS.
--- NOTE | 2016-09-25 02:45 | NUR ---
PATIENT DROWSY. AWOKE I ROUNDED. DENIES NEEDS. EMPTIED 350ML FROM BEDSIDE URINAL.
--- NOTE | 2016-09-25 04:40 | NUR ---
RESTING QUIETLY IN BED, EYES CLOSED.
--- NOTE | 2016-09-25 06:05 | NUR ---
GAVE PATIENT SCHEDULED MEDS. EMPTIED 550ML FROM BEDSIDE URINAL. DENIES CURRENT NEEDS.
--- NOTE | 2016-09-25 07:31 | NUR ---
RESTING QUIETLY IN BED. EYES CLOSED. NO S/S DISTRESS OR NEEDS. CALL LIGHT IN REACH.
[2016-09-25 07:55] VITALS: BP 128/59
--- NOTE | 2016-09-25 10:20 | NUR ---
PATIENT IS ALERT/ORIENT X4. CALL LIGHT WITHIN REACH. ON A BARIMAX II BED. STATES RELIEF FROM PRN PAIN MEDICATION.
--- NOTE | 2016-09-25 11:16 | NUR ---
Nutrition Follow Up: Pt was in therapy at the time of RD visit. Interview deferred. Pt is eating 100% meal avg on a diabetic diet. He is receiving Juan Pablo BID. +BM 09/24/16. Meds and labs reviewed. Rec continue current diet, supplement regimen. RD following.
--- NOTE | 2016-09-25 14:50 | NUR ---
CARE TEAM MEETING: TENATIVE DISCHARGE DATE IS 09/27/16, BUT PATIENT REQUEST TO BE DISCHARGED ON 09/28/16 DUE TO WIFES WORK SCHEDULE. PATIENT WILL DISCHARGE ON 09/28/16 TO HOME WITH FAMILY. PATIENT HAS ALL DME AT HOME NEEDED TO RETURN HOME. WILL CONTINUE TO FOLLOW WITH PATIENT AND WILL ASSIST WITH DISCHARGE NEEDS.
--- NOTE | 2016-09-25 15:08 | NUR ---
Wound care reassessment: Wound to right leg has improved and is now measuring 2cm x 3cm. The wound bed is red and beefy. Bilateral extremities are enlarged with hard thick cobblestone like skin. Current treatment is antibiotic ointment to open wound bid. Recommend changing to daily dressing changes. Wound care will continue to monitor.
--- NOTE | 2016-09-25 17:23 | NUR ---
PATIENT SIGNED BED/CHAIR ALARM MATHEUS. WOULD NOT LET STAFF PUT A KIAH ALARM ON BED. PATIENT IS A MAX TRANSFER OF THREE FROM BED TO WHEELCHAIR AND WHEELCHAIR TO BED. PATIENT IS UNABLE TO GET OUT OF BED OR CHAIR BY HIMSELF. PATIENT DOES NOT TRY TO GET UP BY SELF.
[2016-09-25 19:00] VITALS: BP 114/52
--- NOTE | 2016-09-25 19:30 | NUR ---
RESTING IN BED, EYES CLOSED. NO DISTRESS EVIDENT.
--- NOTE | 2016-09-25 21:55 | NUR ---
ASSESSMENT AND HS MEDS COMPLETE. RIGHT LEG DRESSING WAS CHANGED AROUND 1600 BY WOUND CARE NURSE WHO DECREASED FREQUENCY TO QHS. SCANNED BACTROBAN SO IT WOULD BE RECORDED, WOUND CARE NURSE DID NOT HAVE ACCESS TO A COMPUTER AT THE TIME SHE APPLIED IT. TOPICAL NYSTATIN PWD TO ABDOMINAL FOLD AND CALMOSEPTINE TO HEALING BUTTOCKS SHEAR ABRASION WERE ALSO APPLIED. CHANGED BLUE AIR PAD DUE TO SMALL URINE SPILL FROM EARLIER. EMPTIED 450ML FROM BEDSIDE URINAL.
--- NOTE | 2016-09-26 00:30 | NUR ---
RESTING IN BED, EYES CLOSED. EMPTIED 250ML FROM BEDSIDE URINAL.
--- NOTE | 2016-09-26 02:00 | NUR ---
RESTING QUIETLY IN BED, EYES CLOSED. EMPTIED 350ML FROM HIS BEDSIDE URINAL.
--- NOTE | 2016-09-26 04:20 | NUR ---
PATIENT AWAKE. DENIES NEEDS. EMPTIED 225ML FROM BEDSIDE URINAL.
--- NOTE | 2016-09-26 05:59 | NUR ---
GAVE PATIENT SCHEDULED MEDS. GAVE LOVENOX 40MG SC IN LUQ ABDOMEN. DENIES CURRENT NEEDS.
--- NOTE | 2016-09-26 07:30 | NUR ---
PT ASSISTED TO BR. PT HAD MED BM, SOFT AND FORMED. PT DRESSED FOR THERAPY. PT RETURNED TO BED, DENIES NEEDS. WCTM.
[2016-09-26 08:00] VITALS: BP 141/66
--- NOTE | 2016-09-26 08:45 | NUR ---
PT REQ AND REC'D PRN PAIN MEDICATION. WCTM. BED LOW. CL IN REACH.
--- NOTE | 2016-09-26 11:10 | NUR ---
PT DRESSING TO RLE RE-DRESSED AFTER PT SHOWER WITH THERAPY. NO DRAINAGE NOTED FROM WOUND. APPLIED BACTOBRAN, NON ADHERENT DRESSING, WRAPPED WITH KERLIX AND SABINO BANDAGE. PT RETURNING TO THERAPY ROOM, DENIES NEEDS AT THIS TIME.
--- NOTE | 2016-09-26 12:53 | NUR ---
PT REQ AND REC'D PRN PAIN MED. WCTM.
--- NOTE | 2016-09-26 14:37 | NUR ---
PT CHANGED INTO GOWN AND ASSISTED BACK INTO BED. PT DENIES NEEDS. WCTM.
--- NOTE | 2016-09-26 19:15 | NUR ---
C/O PAIN LEVEL OF 6/10 IN BILAT LE'S. GAVE PATIENT NORCO 10/325 X2 TABS PO FOR HIS PAIN. ALSO GAVE HIM 1800-SCHEDULED LOVENOX 40MG SC IN LUQ ABDOMEN.
[2016-09-26 19:21] VITALS: BP 111/45
--- NOTE | 2016-09-26 21:55 | NUR ---
ASSESSMENT AND TOPICAL HS MEDS GIVEN. DENIES NEEDS.
--- NOTE | 2016-09-26 23:50 | NUR ---
RESTING QUIETLY IN BED, EYES CLOSED. EMPTIED PATIENT'S URINAL.
--- NOTE | 2016-09-27 02:10 | NUR ---
IN BED, EYES CLOSED. RESTING QUIETLY. EMPTIED 275ML FROM BEDSIDE URINAL.
--- NOTE | 2016-09-27 04:45 | NUR ---
REESTING QUEITLY. RESPIRATIONS UNLABORED.
--- NOTE | 2016-09-27 06:15 | NUR ---
ASSISTED PATIENT UP TO BR VIA W/C WHERE HE HAD A LARGE FORMED BM WITH A SMALL UNMEASURED AMOUNT OF URINE. HAD JUST PREVIOUSLY URINATED 200ML IN BEDSIDE URINAL. RETURNED PATIENT TO BED AND GAVE HIM HIS SCHEDULED MEDICATIONS. DENIES FURTHER NEEDS.
[2016-09-27 07:02] LABS: BASOPHILS 1.2 % (0-2); EOSINOPHILS 11.5 % (0-7); HEMATOCRIT 30.3 % (42.0-54.0); HEMOGLOBIN 9.5 g/dL (13.5-17.5); LYMPHOCYTES 24.6 % (15-50); MCH 26.6 pg (26.0-34.0); MCHC 31.4 g/dL (31.0-37.0); MCV 84.9 fL (80.0-100.0); MEAN PLATELET VOLUME 9.3 fL (7.4-10.4); MONOCYTES 21.2 % (2-11); NEUTROPHILS 41.5 % (40-80); RBC 3.57 10x6/uL (4.20-6.10); RDW 17.7 % (11.5-14.5); WBC 3.2 10x3/uL (4.8-10.8)
[2016-09-27 07:10] LABS: CALC OSMOLALITY 275 mosm/kg (275-300); CARBON DIOXIDE 28.1 mmol/L (21.0-32.0); CHLORIDE - SERUM 104 mmol/L (98-107); CREATININE - SERUM 0.8 mg/dL (0.6-1.3); GLUCOSE 95 mg/dL (74-106); POTASSIUM - SERUM 3.7 mmol/L (3.5-5.1); SODIUM 138 mmol/L (136-145); UREA NITROGEN 13 mg/dL (7-18); eGFR NON AFRICAN AMERICAN > 90 mL/min (90-120)
[2016-09-27 07:13] LABS: PLATELET COUNT 149 10x3/uL (130-400)
--- NOTE | 2016-09-27 07:35 | NUR ---
PT RESTING IN BED, WAITING FOR BREAKFAST, DENIES NEEDS. WCTM.
[2016-09-27 08:00] VITALS: BP 107/56
[2016-09-27] MEDS ORDERED: PROTONIX40 MG PO (08:14)
--- NOTE | 2016-09-27 08:30 | NUR ---
PT REQ AND REC'D PRN PAIN MEDICATION. PT DENIES FURTHER NEEDS. WCTM.
--- NOTE | 2016-09-27 11:52 | NUR ---
PT IN THERAPY GYM, TOLERATING WELL. DENIES NEEDS. WCTM.
--- NOTE | 2016-09-27 13:44 | NUR ---
PT RESTING IN BED EATING A SNACK, DENIES NEEDS. WCTM.
--- NOTE | 2016-09-27 18:41 | NUR ---
PT DRESSING CHANGED TO RT LOWER LEG. MINIMAL DRAINAGE NOTED ON PREV DRESSING. BACTROBAN APPLIED. NON ADHERENT DRESSING AND ABD PAD APPLIED. WRAPPED WITH KERLIX AND SABINO.
[2016-09-27 19:50] VITALS: BP 117/49
--- NOTE | 2016-09-27 21:00 | NUR ---
ASSESSMENT AND HS MEDS COMPLETE. GAVE PATIENT NORCO 10325 X2 TABS PO FOR PAIN LEVEL OF 6/10 IN BILAT LEGS.
--- NOTE | 2016-09-27 21:50 | NUR ---
REMAINS AWAKE IN BED. NO COMPLAINTS AT THIS TIME.
--- NOTE | 2016-09-28 | NUR ---
RESTING QUIETLY IN BED, EYES CLOSED. EMPTIED 100ML FROM BEDSIDE URINAL.
--- NOTE | 2016-09-28 02:15 | NUR ---
RESTING IN BED, EYES CLOSED.
--- NOTE | 2016-09-28 04:30 | NUR ---
IN BED, RESTING WITH EYES CLOSED. RESPIRING QUIETLY. EMPTIED 450ML FROMBEDSIDE URINAL.
--- NOTE | 2016-09-28 05:50 | NUR ---
ASSISTED PATIENT UP TO BR COMMODE VIA W/C, TO ATTEMPT BM.
[2016-09-28 08:00] VITALS: BP 113/46
--- NOTE | 2016-09-28 08:00 | NUR ---
SHIFT ASSMT COMPLETED.RLE WITH SABINO PEREZ C/D/I.PLANS FOR DC HOME TODAY.WILL CALL FRIDAY AM AND SPEAK WITH SIDNEY ON HH CHOICE.
--- NOTE | 2016-09-28 10:30 | NUR ---
REVIEWED CONTINUED MEDS.STATES UNDERSTANDING.CALLED LEVOTHYROXINE TO PHARMACY OF CHOICE.
--- NOTE | 2016-09-28 13:00 | NUR ---
DISCHARGED IN STABLE CONDITION.
--- NOTE | 2016-09-30 09:59 | NUR ---
LATE ENTRY SPOKE WITH PATIENT AND HE AND HIS HAS DECLINED HOME HEALTH. HE HAS ALL DME NEEDED AT HOME. DR. ORTIZ 10/11/16 @ 9:50. PATIENT CHOICE FORM FOR HOME HEALTH AND [facility] FORM SIGNED, EXPLAINED AND FILED IN CHART
== END 2016-09-28 13:15 | disposition home or self-care (01) | DRG 948 ==
LOC: D.REHAB 11:47
PROVIDERS: ADMIT Emergency Medicine
DX: R53.81 Other malaise (principal); L03.116 Cellulitis of left lower limb; L03.115 Cellulitis of right lower limb; Z68.43 Body mass index [BMI] 50.0-59.9, adult; I10 Essential (primary) hypertension; K21.9 Gastro-esophageal reflux disease without esophagitis; E66.01 Morbid (severe) obesity due to excess calories

== ENCOUNTER 2017-01-26 10:42 | Inpatient (IN) | payer MEDICARE ==
[2017-01-26] VITALS (12 sets, daily range): BP systolic 102–152; BP diastolic 41–84; BMI 58.7
[~2017-01-26] VITALS: Ht 177.8 cm; Wt 161.6 kg
[2017-01-26 11:43] LABS: BASOPHILS 0.2 % (0-2); EOSINOPHILS 0.2 % (0-7); HEMOGLOBIN 10.2 g/dL (13.5-17.5); IMMATURE GRANULOCYTES 0.6 % (0-5); LYMPHOCYTES 9.2 % (15-50); MCH 25.8 pg (26.0-34.0); MCHC 31.9 g/dL (31.0-37.0); MCV 80.8 fL (80.0-100.0); MEAN PLATELET VOLUME 8.2 fL (7.4-10.4); MONOCYTES 6.9 % (2-11); NEUTROPHILS 82.9 % (40-80); RBC 3.96 10x6/uL (4.20-6.10); RDW 19.3 % (11.5-14.5); WBC 8.9 10x3/uL (4.8-10.8)
[2017-01-26 11:46] LABS: APPEARANCE HAZY (CLEAR); BILIRUBIN NEGATIVE (NEGATIVE); COLOR DK YELLOW (YELLOW); GLUCOSE NEGATIVE (NEGATIVE); KETONE NEGATIVE (NEGATIVE); NITRITE POSITIVE (NEGATIVE); PROTEIN TRACE mg/dL (NEGATIVE); SPECIFIC GRAVITY 1.005 (1.005-1.020); UROBILINOGEN NORMAL (NORMAL)
[2017-01-26 11:46] LABS: PLATELET COUNT 180 10x3/uL (130-400)
[2017-01-26 11:57] LABS: BACTERIA MANY /hpf (NONE SEEN); CALCIUM OXALATE CRYSTALS RARE /hpf (NONE SEEN); EPITHELIAL CELLS OCC /hpf (0-5); GRANULAR CAST OCC /lpf (NONE SEEN); HYALINE CAST 0-5 /lpf (NONE SEEN); RED CELLS - URINE OCC /hpf (0-5); WHITE CELLS - URINE >50 /hpf (0-5)
[2017-01-26 11:57] LABS: ALBUMIN 1.7 g/dL (3.4-5.0); ALKALINE PHOSPHATASE 160 U/L (46-116); ALT (SGPT) 10 U/L (10-68); BILIRUBIN - TOTAL 1.63 mg/dL (0.2-1.3); CALC OSMOLALITY 268 mosm/kg (275-300); CARBON DIOXIDE 23.4 mmol/L (21.0-32.0); CHLORIDE - SERUM 102 mmol/L (98-107); CREATININE - SERUM 1.5 mg/dL (0.6-1.3); GLUCOSE 131 mg/dL (74-106); POTASSIUM - SERUM 3.4 mmol/L (3.5-5.1); PROTEIN - SERUM 8.7 g/dL (6.4-8.2); SODIUM 134 mmol/L (136-145); UREA NITROGEN 11 mg/dL (7-18); eGFR NON AFRICAN AMERICAN 51 mL/min (90-120)
[2017-01-26 12:00] LABS: INR 1.67 (0.85-1.17); PROTIME 19.7 SECONDS (11.6-15.0)
[2017-01-26 12:01] LABS: UDS - AMPHET NEGATIVE QUAL (NEGATIVE); UDS - BARB NEGATIVE QUAL (NEGATIVE); UDS - BENZO NEGATIVE QUAL (NEGATIVE); UDS - COCAINE NEGATIVE QUAL (NEGATIVE); UDS - OPIATE POSITIVE QUAL (NEGATIVE); UDS - PCP NEGATIVE QUAL (NEGATIVE); UDS - THC NEGATIVE QUAL (NEGATIVE)
[2017-01-26 12:06] LABS: CREATINE KINASE 50 UL (21-232); MAGNESIUM - SERUM 1.8 mg/dL (1.8-2.4); PRO BNP 339 pg/mL (0-125)
[2017-01-26 12:07] LABS: TROPONIN-I < 0.017 ng/mL (0.000-0.060)
--- NOTE | 2017-01-26 13:49 | NUR ---
RECIEVED REPORT ON PT FROM ER, WAITING FOR PT TO ARRIVE.
--- NOTE | 2017-01-26 14:27 | NUR ---
PT ARRIVED TO UNIT VIA BED FROM ER ACCOMPANIED BY HOSPITAL STAFF AND . PT LETHARGIC BUT FOLLOWS COMMANDS AND ANSWERS QUESTIONS APPROPIATLY. NO ACUTE DISTRESS NOTED. WILL CONTINUE PLAN OF CARE.
--- NOTE | 2017-01-26 15:22 | NUR ---
DR HERNANDEZ PAGED TO NOTIFY OF CONSULT.
--- NOTE | 2017-01-26 15:32 | NUR ---
STATES SHE WOKE UP THIS AM AND PATIENT HAD TRASHED HER LIVING ROOM AND SHE DID NOT HEAR A THING. STATES HE HAD A GLASSY EYE LOOK. STATES PATIENT AMBULATES ABOUT 10 FEET FROM HIM CHAIR TO THE BATHROOM AND THAT IS ABOUT ALL HE DOES. PATIENT WAS IN THE HOSPITAL IN AUGUST FOR INFECTION IN HIS RIGHT LEG. HAD A GI BLEED YEAR BEFORE LAST. PATIENT DID ANSWER SOME QUESTIONS APPROPIATELY THEN DID START GIVING INAPPROPIATE ANSWERS. STATES HIS EDUCATION LEVEL IS 14 ASKED WHAT GRADE HE COMPLETED CONTINUE TO SAY 14. DOES OBEY COMMANDS DURING EXAM. COOPERATIVE AND POLITE
--- NOTE | 2017-01-26 15:41 | NUR ---
DR HERNANDEZ NOTIFIED OF CONSULT. ORDERS RECIEVED.
--- NOTE | 2017-01-26 17:44 | NUR ---
UP IN BED RESTING AT THIS TIME. NO ACUTE DISTRESS NOTED. AWAKENS EASILY WHEN SPOKEN TO. WILL CONTINUE PLAN OF CARE.
--- NOTE | 2017-01-26 18:35 | NUR ---
TOTAL BED CHANGE PROVIDED, PT NOTED TO HAVE INCONTINENT BOWEL MOVEMENT. RECTAL TUBE PLACED TO PRESERVE SKIN INTEGRITY. AM[facility]O CARE AND FREEDMAN CARE PROVIDED VIA TOTAL ASSIST. NO ACUTE DISTRESS NOTED. PT UP IN BED RESTING, RESPIRATIONS STEADY AND UNLABORED, AWAKENS EASILY WHEN SPOKEN TO. PT REFUSED SUPPER. WILL CONTINUE PLAN OF CARE.
--- NOTE | 2017-01-26 18:38 | NUR ---
PT TO BE NPO AFTER MIDNIGHT FOR ULTRASOUND TOMORROW.
--- NOTE | 2017-01-26 19:10 | NUR ---
Received patient resting in bed with eyes open, assessment completed per flowsheet. Patient AO x4, slightly lethargic with moments of confusion. Eyes PERRLA @ 4mm with brisk response, sclera is slightly reddened and clear. S1/S2 noted Sinus Tach on telemetry with HR 103, rythmic and regular. Breathing is shallow on room air with O2 sat 96%, lung sounds diminished throughout. Abdomen is flat and soft with bowel sounds hyperactive x4. Garza secured, slightly jas urine noted. Rectal Tube in place, liquid brown stool noted. Buttocks/Coccyx reddened area and excoriation noted, barrier cream applied. Upper extremity Full ROM with pulses palpable, lower extremity pulses weak with limited ROM. Lower extremities skin thick with weeping edema noted, cleaned and pads placed. L hand PIV dressing CDI, D5NS @ 20ml/hr infusing. Patient denies pain or other needs at this time, all VSS and will continue to monitor.
--- NOTE | 2017-01-26 21:00 | NUR ---
No visitors at this time, all HS meds given without difficulty. Patient denies pain or other needs at this time, all VSS and will continue to monitor.
--- NOTE | 2017-01-26 23:00 | NUR ---
Reassessment completed per flowsheet, patient resting in bed with eyes closed. S1/S2 noted NSR on telemetry with HR 95, rythmic and regular. Breathing is shallow on room air with O2 sat 97%, lung sounds diminished throughout. Abdomen is flat and soft with bowel sounds hyperactive x4. Garza secured with slight jas urine noted, Rectal Tube secured with liquid brown stool. Upper pulses palpable with full ROM, lower pulses weak with limited ROM. Lower extremities skin thick/rough, weeping edema noted. Patient repostitioned for comfort, denies pain or other needs at this time. All VSS and will continue to monitor.
[2017-01-27] VITALS (11 sets, daily range): BP systolic 119–154; BP diastolic 57–86; Ht 177.8 cm; Wt 161.6 kg
--- NOTE | 2017-01-27 01:00 | NUR ---
Patient resting in bed with eyes closed, breathing is slightly shallow on room air with O2 sat 97%. Patient repositioned for comfort, denies pain or other needs at this time. All VSS and will continue to monitor.
--- NOTE | 2017-01-27 03:00 | NUR ---
Reassessment completed per flowsheet, patient resting in bed with eyes closed. S1/S2 noted NSR on telemetry with HR 92, rythmic and regular. Breathing is slightly shallow on room air with O2 sat 97%, lung sounds diminished throughout. Abdomen is flat and soft with bowel sounds hyperactive x4, non-tender. Garza/Rectal Tube secured, repositioned for comfort. Upper pulses palpable with full ROM, lower pulses weak with limited ROM. Bilateral lower extremities skin thick/rough, weeping edema noted. Patient denies pain or other needs at this time, all VSS and will continue to monitor.
--- NOTE | 2017-01-27 05:00 | NUR ---
Patient resting in bed with eyes closed, breathing is shallow and unlabored on room air with O2 sat 96%. AM labs collected without difficulty, patient repositioned for comfort. Denies pain or other needs at this time, all VSS and will continue to monitor.
[2017-01-27 05:31] LABS: BASOPHILS 0.1 % (0-2); EOSINOPHILS 0.2 % (0-7); HEMATOCRIT 28.6 % (42.0-54.0); HEMOGLOBIN 9.4 g/dL (13.5-17.5); IMMATURE GRANULOCYTES 0.4 % (0-5); LYMPHOCYTES 4.4 % (15-50); MCHC 32.9 g/dL (31.0-37.0); MCV 79.2 fL (80.0-100.0); MEAN PLATELET VOLUME 8.2 fL (7.4-10.4); MONOCYTES 12.2 % (2-11); NEUTROPHILS 82.7 % (40-80); PLATELET COUNT 132 10x3/uL (130-400); RBC 3.61 10x6/uL (4.20-6.10); RDW 19.6 % (11.5-14.5); WBC 16.3 10x3/uL (4.8-10.8)
[2017-01-27 05:50] LABS: ALBUMIN 1.4 g/dL (3.4-5.0); ANION GAP 12.4 mmol/L (8-16); BILIRUBIN - TOTAL 1.7 mg/dL (0.2-1.3); CALCIUM 7.9 mg/dL (8.5-10.1); CARBON DIOXIDE 23.7 mmol/L (21.0-32.0); CREATININE - SERUM 1.6 mg/dL (0.6-1.3); POTASSIUM - SERUM 3.1 mmol/L (3.5-5.1); PROTEIN - SERUM 7.3 g/dL (6.4-8.2)
--- NOTE | 2017-01-27 15:03 | NUR ---
PT BATHED AND [id number] ON BIG BOY BED. LINENS CHANGED.
--- NOTE | 2017-01-27 15:39 | NUR ---
* Is the patient Alert and Oriented? Yes 0 * How many steps to enter\exit or inside your home? Ramp 0 * PCP Dr. Wong 0 * Pharmacy [facility] [address] [place] 0 * Preadmission Environment Home with Family 0 * ADLs Partial Dependent 0 * Partial ADLs (Assistance needed) Ambulation 0 * List name and contact numbers for known caregivers / representatives who currently or will assist patient after discharge: Spouse - Meli [phone] 0 * Additional services required to return to the preadmission environment? No 0 * Can the patient safely return to the preadmission environment? Yes 0 * Has this patient been hospitalized within the prior 30 days at any hospital? No Patient Name: BRADLEY HARRIS Admission Status: ER Accout number: [id number] Admission Date: 01-26-2017 : 1960 Admission Diagnosis: Attending: TINA PALMER Current LOS: 1 Anticipated DC Date: Planned Disposition: Home Primary Insurance: MEDICARE A & B Discharge Planning Comments: CM met with patient & spouse to assess DC plans/needs. Patient reports he lives at home with his , Meli. He reports he is fairly independent with all ADL's but does use a walker, WC & BSC that he uses as a toilet seat riser. He has not had home health services in the past. At dc, he plans to return home with his . CM will follow & assist as needed. Stove Carriage Operator: Angeles Arizmendi
--- NOTE | 2017-01-27 16:01 | NUR ---
PT TRANSFERED TO ROOM 2100 VIA BED, ORIENTED PT TO ROOM AND CALL LIGHT, PT REQUESTING A CUP OF WATER, WILL PROVIDED PT WITH WATER. PT DENIES ANY NEEDS AT THIS TIME. CALL LIGHT IN REACH, NAD NOTED, WILL CONTINUE TO MONITOR.
[2017-01-28 03:47] VITALS: BP 128/88
--- NOTE | 2017-01-28 04:00 | NUR ---
PATIENT COMPLAINS OF NAUSEA, ZOFRAN 4 MG GIVEN IV. CALL LIGHT IN REACH.
[2017-01-28 04:37] LABS: BASOPHILS 0.3 % (0-2); EOSINOPHILS 0.7 % (0-7); HEMATOCRIT 30.5 % (42.0-54.0); HEMOGLOBIN 9.8 g/dL (13.5-17.5); IMMATURE GRANULOCYTES 0.9 % (0-5); LYMPHOCYTES 8.7 % (15-50); MCHC 32.1 g/dL (31.0-37.0); MCV 80.9 fL (80.0-100.0); MEAN PLATELET VOLUME 8.8 fL (7.4-10.4); MONOCYTES 13.1 % (2-11); NEUTROPHILS 76.3 % (40-80); RBC 3.77 10x6/uL (4.20-6.10); RDW 20.2 % (11.5-14.5)
[2017-01-28 04:40] LABS: PLATELET COUNT 170 10x3/uL (130-400); WBC 10.6 10x3/uL (4.8-10.8)
[2017-01-28 04:46] LABS: PROTIME 23.1 SECONDS (11.6-15.0)
[2017-01-28 04:50] LABS: INR 2.04 (0.85-1.17)
[2017-01-28 05:00] LABS: % SATURATION 32 % (15-55); IRON 55 ug/dl (35-150); TOTAL IRON BIND CAPACITY 171 ug/dl (260-445); UNSAT IRON BIND CAPACITY 116 ug/dl (150-375)
[2017-01-28 05:06] LABS: ALBUMIN 1.6 g/dL (3.4-5.0); ANION GAP 13.2 mmol/L (8-16); BILIRUBIN - TOTAL 1.82 mg/dL (0.2-1.3); C-REACTIVE PROTEIN 7.8 mg/dL (0.0-0.9); CALCIUM 7.8 mg/dL (8.5-10.1); CARBON DIOXIDE 22.7 mmol/L (21.0-32.0); CREATININE - SERUM 1.5 mg/dL (0.6-1.3); PROTEIN - SERUM 7.8 g/dL (6.4-8.2); THYROID STIMULATING HORMONE 1.76 uIU/mL (0.36-3.74)
[2017-01-28 05:26] LABS: POTASSIUM - SERUM 2.9 mmol/L (3.5-5.1)
--- NOTE | 2017-01-28 05:33 | NUR ---
PATIENT HAS A CRITICAL POTASSIUM OF 2.9, I SPOKE WITH LIBBY LOPEZ APRN AND GOT AN ORDER TO ADD ELECTROLYTE PROTOCOL.
--- NOTE | 2017-01-28 07:05 | NUR ---
RECEIVED REPORT. ASSUMED CARE OF PATIENT. CALL LIGHT WITHIN REACH. RECTAL BAG AND F/C PATENT. EASILY AROUSED. RESP EVEN AND UNLABORED. NO DISTRESS.
[2017-01-28 08:00] VITALS: BP 132/64
--- NOTE | 2017-01-28 09:26 | NUR ---
K+ SUPPLEMENT #2 ADMINISTERED AT THIS TIME. NO DISTRESS.
--- NOTE | 2017-01-28 11:29 | NUR ---
PATIENT COMPLAIN OF EPIGASTRIC PAIN, PATIENT STATES IT FEELS LIKE A GAS BUBBLE TRAPPED. NEW ORDER FOR SIMETHICONE PRN.
[2017-01-28 12:00] VITALS: BP 146/59
--- NOTE | 2017-01-28 12:22 | NUR ---
MEDICATED FOR EPIGASTRIC GAS PAINS AT THIS TIME. NO DISTRESS.
[2017-01-28 16:00] VITALS: BP 138/60
--- NOTE | 2017-01-28 17:51 | NUR ---
RESTING IN BED WITH EYES OPEN. PATIENT COMPLAINING THAT HIS ABDOMEN IS HURTING AGAIN LIKE GAS PAINS. NO DISTRESS. SIMETHICONE ADMINISTERED.
--- NOTE | 2017-01-28 21:31 | NUR ---
PATIENT IS ALERT IN BED, DENIES PAIN OR NEEDS AT THIS TIME. CALL LIGHT IN REACH, WILL CONTINUE TO MONITOR.
[2017-01-28 21:38] VITALS: BP 145/67
[2017-01-29 00:37] VITALS: BP 121/61
--- NOTE | 2017-01-29 03:58 | NUR ---
PT LYING IN BED, EYES CLOSED, RESPIRATIONS EVEN AND UNLABORED. CONTINUE TO MONITOR CLOSELY. BED LOW, CALL LIGHT IN REACH, SIDE RAILS X 2, HOB 35-40 DEGREES.
[2017-01-29 04:53] VITALS: BP 127/62
[2017-01-29 05:18] LABS: BASOPHILS 0.5 % (0-2); EOSINOPHILS 7.2 % (0-7); HEMOGLOBIN 9.3 g/dL (13.5-17.5); IMMATURE GRANULOCYTES 0.9 % (0-5); LYMPHOCYTES 10.4 % (15-50); MCH 26.3 pg (26.0-34.0); MCHC 32.1 g/dL (31.0-37.0); MCV 81.9 fL (80.0-100.0); MEAN PLATELET VOLUME 8.4 fL (7.4-10.4); MONOCYTES 13.6 % (2-11); NEUTROPHILS 67.4 % (40-80); PLATELET COUNT 145 10x3/uL (130-400); RBC 3.54 10x6/uL (4.20-6.10); RDW 20.4 % (11.5-14.5)
[2017-01-29 05:21] LABS: WBC 7.4 10x3/uL (4.8-10.8)
--- NOTE | 2017-01-29 08:08 | NUR ---
AM ROUNDS - PT IN BED AND AWAKE AT THIS TIME. AT BEDSIDE. NO YELLOW BAND. IV TO RIGTH ROXANNE SL. PT IS ON ROOM AIR. BED AT LOWEST POSITION. CALL HURT IN USE/REACH. SIDE RAILS UP X2. WILL CONTINUE TO MONITOR
[2017-01-29 08:17] VITALS: BP 137/58
--- NOTE | 2017-01-29 08:23 | NUR ---
AM ROUNDS - PT AWAKE AND IN BED AT THIS TIME. MONITOR SHOWING SR, HR 81. IV TO LEFT HAND, D5LR AT 50CC/HR. PT IS ON ROOM AIR. PT HAS A FREEDMAN AND A FECAL TUBE BOTH DRAINING. BED AT LOWEST POSITION. CALL HURT IN USE/REACH. SIDE RAILS UP X2. WILL CONTINUE TO MONITOR
[2017-01-29 11:22] VITALS: BP 134/58
[2017-01-29] MEDS ORDERED: XIFAXAN550 MG PO (12:35)
[2017-01-29] MEDS ORDERED: OMNICEF300 MG PO (12:36)
[2017-01-29] MEDS ORDERED: LEVAQUIN500 MG PO (12:37)
--- NOTE | 2017-01-29 14:27 | NUR ---
Patient Name: BRADLEY HARRIS Encounter No: [id number] : 1960 Primary Insurance: MEDICARE A & B Anticipated DC Date: 01-29-2017 Planned Disposition: Inpatient Rehab External Planned Provider: [facility] DCP follow-up note: CM RECEIVED DISCHARGE ORDER, SPOKE TO CECELIA LOPEZ WHO ADVISED THAT PT DOES NOT WANT TO LEAVE THE HOSPITAL TODAY; CM SPOKE TO PT IN ROOM REGARDING DISCHARGE NEEDS AND PLANNING. PT REPORTS THAT HE PLANS TO GO HOME BUT JUST DON'T FEEL HE IS MEDICALLY READY YET. CM PROVIDED AND EXPLAINED IMPORTANT MESSAGE FROM MEDICARE. CM DISCUSSED AVAILABILITY OF REHAB SERVICES. PT DOES NOT WANT TO DISCUSS THIS WITH CM AND ASKED CM TO WAIT FOR HIS WHO WILL BE BACK ANY MINUTE. CM PROVIDED PT WITH CM CONTACT INFORMATION, ASKED PT TO CALL CM WHEN HIS ARRIVED. CM SPOKE TO BEDSIDE NURSE WHO REPORTS PT'S SPOUSE IN ROOM. CM MET WITH PT AND SPOUSE IN ROOM TO DISCUSS DISCHARGE NEEDS. CM PROVIDED AND DISCUSSED IMPORTANT MESSAGE FROM MEDICARE. PT'S SPOUSE REPORTS WANTING TO SPEAK TO THE DOCTOR BEFORE MAKING ANY DECISION TO CALL MEDICARE TO APPEAL THE DECISION TO DISCHARGE. PT'S SPOUSE WANTS PT TO BE ABLE TO WALK TO AND FROM THE BATHROOM WITH HIS WALKER HE WAS DOING AT HOME PRIOR TO ADMISSION TO BE ABLE TO GO BACK HOME; PT REPORTS THERAPY HAS NOT GOTTEN HIM UP SINCE ADMISSION. PT'S SPOUSE REPORTS SHE WANTS INPATIENT REHAB AT [facility] IF IT IS AVAILABLE AND IF THEY WILL ACCEPT PT; IF THEY WILL NOT OR CANNOT, SHE WANTS REFERRALS TO [facility] FOR REHAB SERVICES. CM NOTIFIED PT'S SPOUSE TO REMAIN IN ROOM AND DR. RAZO WILL BE AROUND. CHOICE SIGNED FOR [facility] IF NEEDED. CM NOTIFIED CECELIA LOPEZ AND RN RICKI IBANEZ. CM RECEIVED ORDER OR INPATIENT REHAB PRESCREENING; RN RICKI HOUSE REQUESTED THERAPY TO EVALUATE PT. CM REVIEWED CHART AND REQUESTED ACCURATE WEIGHT FOR PT FROM BEDSIDE NURSE TO ASSIST WITH REHAB PLACEMENT. CM CALLED LUZ MARINA OF [facility] INPATIENT [facility] WHO REPORTS THEY WILL SCREEN PT FOR ADMISSION. CM WAITING PHYSICAL THERAPY EVALUATION CM WAITING RESULTS OF INPATIENT REHAB PRESCREENING. Mahad Fairbanks, CASE MANGEMENT
--- NOTE | 2017-01-29 15:34 | NUR ---
PT IN BED AT THIS TIME C/O HEADACHE. MEDS GIVEN. WILL CONTINUE TO MONITOR
--- NOTE | 2017-01-29 15:38 | NUR ---
+PT IN BED AT THIS TIME. AT BEDSIDE. D/C ORDER IN BUT PT IS NOT GOING HOME AT THIS TIME. WILL CONTINUE TO MONITOR
[2017-01-29 16:04] VITALS: BP 135/64
--- NOTE | 2017-01-29 16:23 | NUR ---
REHAB PRESCREENING Rehab referral received and chart reviewed. Mr. Hughes is well known to this rehab. At this time his functional level is too low to meet acute rehab admission criteria. He is Max Assist X 3 for bed mobility and is unable to stand. Thank you for this referral! Rose Aguayo, [facility] Rehab Bulk Plant Supervisor
[2017-01-29 20:27] VITALS: BP 142/64
[2017-01-30 01:58] VITALS: BP 141/63
--- NOTE | 2017-01-30 03:15 | NUR ---
CLIENT SUCCESS MANAGER AT BEDSIDE TO OBTAIN VITALS, CALL LIGHT IN REACH. WILL CONTINUE WITH PLAN OF CARE. 82 SR ON TELEMETRY
[2017-01-30 05:01] LABS: BASOPHILS 0.7 % (0-2); EOSINOPHILS 14.1 % (0-7); HEMATOCRIT 26.7 % (42.0-54.0); HEMOGLOBIN 8.5 g/dL (13.5-17.5); IMMATURE GRANULOCYTES 0.5 % (0-5); LYMPHOCYTES 14.2 % (15-50); MCH 26.4 pg (26.0-34.0); MCHC 31.8 g/dL (31.0-37.0); MCV 82.9 fL (80.0-100.0); MEAN PLATELET VOLUME 8.3 fL (7.4-10.4); MONOCYTES 13.1 % (2-11); NEUTROPHILS 57.4 % (40-80); PLATELET COUNT 130 10x3/uL (130-400); RBC 3.22 10x6/uL (4.20-6.10); RDW 20.3 % (11.5-14.5)
[2017-01-30 05:06] LABS: ANION GAP 7.9 mmol/L (8-16); C-REACTIVE PROTEIN 4.1 mg/dL (0.0-0.9); CALCIUM 7.6 mg/dL (8.5-10.1); CARBON DIOXIDE 25.9 mmol/L (21.0-32.0); CREATININE - SERUM 1.2 mg/dL (0.6-1.3)
[2017-01-30 05:10] VITALS: BP 132/62
--- NOTE | 2017-01-30 05:12 | NUR ---
PT ALERT C/O OF NAUSEA, ZOFRAN 4 MG PO GIVEN. CALL LIGHT IN REACH, WILL CONTINUE TO MONITOR.
[2017-01-30 05:14] LABS: POTASSIUM - SERUM 2.8 mmol/L (3.5-5.1)
--- NOTE | 2017-01-30 05:51 | NUR ---
POTASSIUM IS 2.8 THIS MORNING, 20 MEQ OF K WAS GIVEN PO AT 0530.
--- NOTE | 2017-01-30 07:05 | NUR ---
REPORT RECEIVED. RR EVEN AND UNLABORED, PT DENIES NEEDS AT THIS TIME. FAMILY AT BEDSIDE. WILL CTM.
--- NOTE | 2017-01-30 08:00 | NUR ---
IMAGINING PERSONEL HERE TO GET PT FOR UPPER GI SERIES. I WAS NOT TOLD IN REPORT ABOUT PROCEDURE, THEREFORE PT WAS NOT NPO. SPOKE TO PT AND IMAGING PERSONELL ABOUT ISSUE. PT IS NOW NPO FOR UPPER GI TO BE DONE AFTER LUNCH.
--- NOTE | 2017-01-30 08:00 | NUR ---
PT REQUESTING SOMETHING FOR PAIN. WILL PAGE LIBBY RODRIGUEZ ABOUT PT REQUEST.
[2017-01-30 08:10] VITALS: BP 129/62
--- NOTE | 2017-01-30 08:25 | NUR ---
SPOKE TO LIBBY RODRIGUEZ APN ABOUT PT REQUEST FOR PAIN MEDS. GAVE TELEPHONE ORDER TO CONT HOME NORCO 10 Q 6 HRS. WILL PUT ORDER IN AND CTM.
[2017-01-30 11:18] VITALS: BP 125/63
--- NOTE | 2017-01-30 14:05 | NUR ---
RADIOLOGY PERSONNEL HERE TO GET PT FOR UPPER GI. WILL CTM UPON RETURN FROM IMAGING.
--- NOTE | 2017-01-30 15:00 | NUR ---
PT BACK FROM UPPER GI. RAIDOLOGY REPORTED SEEING 2 SMALL COCKROACH APPEARING BUGS DURING UPPER GI SERIES ON PTS FEET. UPON RETURN TO ROOM, I NOTED 1 SMALL BUG IN BETWEEN TOES. DR. DUNG PORRAS, NOW AWARE OF SITUATION.
--- NOTE | 2017-01-30 15:32 | NUR ---
TURNED PT ON LEFT SIDE, PTS RECTAL TUBE LEAKING AROUND AREA. REMOVED 35MLS FROM BALLOON OF RECTAL TUBE AND THEN REMOVED FROM PT. WILL CHANGE LINENS AND GIVE BATH TO PT. WHEN PT WAS TURNED, 2 MORE SMALL BUGS NOTED ON RIGHT HIP.
--- NOTE | 2017-01-30 16:00 | NUR ---
FULL BED BATH AND LINEN CHANGE PROVDIED TO PT X2 ASSIST. RR EVEN AND UNLABORED, NO MORE BUGS NOTED ON PT.
--- NOTE | 2017-01-30 16:42 | NUR ---
Patient Name: BRADLEY HARRIS Encounter No: [id number] : 1960 Primary Insurance: MEDICARE A & B Anticipated DC Date: 01-29-2017 Planned Disposition: Inpatient Rehab External Planned Provider: [facility] INPAT[facility] DCP follow-up note: CM MET WITH PT AND SPOUSE AT APPROXIMATELY 1645 01-29-17, TO DISCUSS DISCHARGE PLANNING; CM NOTIFIED OF INPATIENT REHAB PRESCREENING ORDER ENTERED REQUESTED BY PT / SPOUSE, THERAPY EVALUATION REQUESTED AND CM HAD CALLED [facility] AND [facility] WHO BOTH REPORTED THEY CANNOT TAKE PT OVER 350 LBS. PT'S SPOUSE REPORTS SHE WANTS REFERRAL SENT TO [facility] MENTIONED BY DR. RAZO; CM DISCUSSED [facility] AND [facility], SPOUSE REPORTS TO SEND THERE ALSO. ON 01-30-17, CM FAXED REFERRALS TO [facility] AT [phone] AND [facility] AT [phone]. CM WAITING MEDICARE DISCHARGE APPEAL DETERMINATION, RESULT OF INPATIENT REHAB PRESCREENING, ADMISSION DETERMINATION FROM [facility] AND ADMISSION DETERMINATION FROM [facility]. Mahad Fairbanks, CASE MANAGEMENT
--- NOTE | 2017-01-30 18:30 | NUR ---
PT RESTING QUIETLY, RR EVEN AND UNLABORED. FAMILY AT BEDSIDE. PT DENIES NEEDS AT THIS TIME. WILL GIVE REPORT ON PT CONDTION FOR THE DAY.
[2017-01-30 20:19] VITALS: BP 131/56
[2017-01-31 00:38] VITALS: BP 131/53
--- NOTE | 2017-01-31 03:18 | NUR ---
REFINERY OPERATOR HELPER AT BEDSIDE TO OBTAIN VITALS, CALL LIGHT IN REACH. WILL CONTINUE WITH PLAN OF CARE.
[2017-01-31 04:57] VITALS: BP 116/59
[2017-01-31 05:23] LABS: HEMATOCRIT 25.9 % (42.0-54.0); HEMOGLOBIN 8.2 g/dL (13.5-17.5); LYMPHOCYTES 8.5 % (15-50); MCH 26.2 pg (26.0-34.0); MCHC 31.7 g/dL (31.0-37.0); MCV 82.7 fL (80.0-100.0); MEAN PLATELET VOLUME 7.8 fL (7.4-10.4); NEUTROPHILS 50.6 % (40-80); PLATELET COUNT 121 10x3/uL (130-400); RBC 3.13 10x6/uL (4.20-6.10); RDW 20.8 % (11.5-14.5); WBC 5.9 10x3/uL (4.8-10.8)
[2017-01-31 05:24] LABS: ALBUMIN 1.3 g/dL (3.4-5.0); ANION GAP 10.3 mmol/L (8-16); BILIRUBIN - TOTAL 0.88 mg/dL (0.2-1.3); CALCIUM 7.2 mg/dL (8.5-10.1); CARBON DIOXIDE 24.6 mmol/L (21.0-32.0); CREATININE - SERUM 1.2 mg/dL (0.6-1.3); PROTEIN - SERUM 6.4 g/dL (6.4-8.2)
[2017-01-31 05:29] LABS: POTASSIUM - SERUM 2.9 mmol/L (3.5-5.1)
[2017-01-31 08:00] VITALS: BP 124/57
--- NOTE | 2017-01-31 08:20 | NUR ---
ASSESSMENT DONE. DENIES NEEDS.
--- NOTE | 2017-01-31 09:01 | NUR ---
Patient Name: BRADLEY HARRIS Encounter No: [id number] : 1960 Primary Insurance: MEDICARE A & B Anticipated DC Date: 01-29-2017 Planned Disposition: Inpatient Rehab External Planned Provider: [facility] DCP follow-up note: CM RECEIVED CALL FROM [facility] WHO REPORTS RECEIVING REFERRAL, WILL COME BY LATER THIS AFTERNOON TO EVALUATE PT FOR LTACH ADMISSION. CM RECEIVED MESSAGE FROM OSMAN THAT SHE ALSO RECEIVED REFERRAL FOR REHAB AT [place] OR [facility]. CM FAXED REFERRAL UPDATES TO [facility] AT [phone] AND [facility] AT [phone]. CM WAITING MEDICARE DISCHARGE APPEAL DETERMINATION, RESULT OF INPATIENT REHAB PRESCREENING, ADMISSION DETERMINATION FROM [facility] AND ADMISSION DETERMINATION FROM [facility]. Mahad Fairbanks, CASE MANAGEMENT
--- NOTE | 2017-01-31 09:35 | NUR ---
NURSE AND WEIGHT TRAINER AT GIVING BATH AND WOUNDCARE. RESTS ON SPECIALTY BED. CALL LIGHT IN REACH. WILL CONT. PLAN OF CARE.
--- NOTE | 2017-01-31 10:14 | NUR ---
FREEDMAN CATH DC
[2017-01-31 12:00] VITALS: BP 126/49
[2017-01-31 16:00] VITALS: BP 130/55
--- NOTE | 2017-01-31 16:11 | NUR ---
Late Entry for 01/31/17 1340 CM recieved call back from [facility] with determination of patient's discharge appeal. Denise with [facility] stated that the discharge was deemed appropriate. CM notified Blue [place] case finisher of determination.
--- NOTE | 2017-01-31 16:18 | NUR ---
Wound care consult: Pt right leg is edematous with dry, bumpy skin. Weeps at times. At the calf and on the back of the right thigh is an open area appears to have been blisters. Abdominal and groin folds are red and moist. Recommend daily cleansing of legs and folds. Dry well and protect from friction and trauma.
--- NOTE | 2017-01-31 18:20 | NUR ---
Patient Name: BRADLEY HARRIS Encounter No: [id number] : 1960 Primary Insurance: MEDICARE A & B Anticipated DC Date: 01-29-2017 Planned Disposition: LONG-TERM FACILTY External Planned Provider: TO BE DETERMINED DCP follow-up note: CM SPOKE TO [facility] WHO COMPLETED EVALUATION, PT DOES NOT QUALIFY FOR LTACH SERVICES. CM SPOKE TO LEMUEL [facility]PAT[facility] WHO INFORMED CM THAT PT HAS REFUSED THERAPY AND IS LOW FUNCTIONING, HE IS NOT A GOOD INPATIENT REHAB CANDIDATE. CM SPOKE TO [facility], THEY CANNOT ACCEPT OVER THE WEEKEND AND HAVE NOT COMPLETED REVIEWING PT'S MEDICAL CHARTS AND DO NOT HAVE THE EQUIPMENT NECESSARY TO TAKE PT IN THE FACILITIES. CM SPOKE TO PT AND SPOUSE IN ROOM. PT'S SPOUSE REPORTS SPEAKING TO MEDICARE AND WAS INFORMED TODAY THAT PT HAS TO LEAVE TOMORROW BY NOON UNLESS THE DOCTOR HERE CHANGES HIS MIND. CM EXPLAINED DECLINATION BY LTACH, INPATIENT, [facility] AND [facility]; CM EXPLAINED NO DETERMINATION HAS BEEN MADE BY [facility] OR [facility] AND WILL HAVE NO DETERMINATION PRIOR TO FRIDAY NEXT WEEK. CM DISCUSSED OTHER LONG-TERM FACILITIES. PT'S SPOUSE DOES NOT WANT TO CONSIDER FACILITY OUTSIDE OF [place], ASKED CM TO SEND REFERRALS FOR REHAB TO [facility], [facility], [facility] AND [facility]. RICKI IS AWARE THAT [facility] HAS NO REHAB BEDS AVAILABLE AFTER SPEAKING TO ELIANA GATICA AT THE FACILITY. CM FAXED REFERRALS TO [facility], [facility] AND [facility], AWAITING ADMISSION DETERMINATION. Mahad Fairbanks, CASE MANAGEMENT
--- NOTE | 2017-01-31 19:32 | NUR ---
PT RESTING IN BED. REQUEST A PAIN PILL WHEN IT IS AVALIBLE. PT SITTING WITH HOB 45. WATCHING TV. PT DENIES ANY OTHER NEEDS. NO S/S OF DISTRESS. WILL CPOC
[2017-01-31 20:00] VITALS: BP 124/58
[2017-02-01] VITALS: BP 128/69
--- NOTE | 2017-02-01 | NUR ---
PT HAD A LARGE BM. SOFT YELLOW "MUSTURD" IN COLOR. PT CLEANED AND REPOSITONED. PT DENIES ANY NEEDS. NO S/S OF DISTRESS. WILL CPOC
[2017-02-01 04:00] VITALS: BP 114/53
[2017-02-01 04:40] LABS: MAGNESIUM - SERUM 1.7 mg/dL (1.8-2.4); POTASSIUM - SERUM 3.4 mmol/L (3.5-5.1)
--- NOTE | 2017-02-01 05:11 | NUR ---
PT RESTING IN BED. DENIES ANY NEEDS. WOKE UP WHEN WALKED INTO ROOM. PT HAS NO S/S OF DISTRESS. BED LOW AND CALL LIGHT IN REACH. WILLCPOC
--- NOTE | 2017-02-01 07:46 | NUR ---
AM ROUNDING- RECEIVED REPORT FROM MANAGER DIVERSITY NURSE SOPHIA. PT IS CURRENTLY SITTING UP IN BED WITH EYES OPEN RESTING. ON ROOM AIR. ON MONITOR SHOWING SR, HR 76. IV SEEN TO LEFT UPPER ARM MIDLINE THAT IS SALINE LOCKED. PT IS REQUESTING TO BE PLACED ON BEDPAN. STEVE CORTES; JO DUMONT; AND I PLACED PT ON BED REICH. PTS BUTTOCK AREA IS EXCORIATED WITH SOME SCABS SEEN AND WHAT APPEARS TO BE SKIN TEAR TO RIGHT CHEECK. JO DUMONT AND ANOTHER TECH GOT PT OFF BEDPAN AND CHANGED LINEN. WILL CONTINUE TO MONITOR AND CONTINUE WITH PLAN OF CARE.
[2017-02-01 08:00] VITALS: BP 120/60
[2017-02-01 12:00] VITALS: BP 111/47
[2017-02-01 12:52] LABS: ANION GAP 10.6 mmol/L (8-16); CALCIUM 7.7 mg/dL (8.5-10.1); CARBON DIOXIDE 25.3 mmol/L (21.0-32.0); CREATININE - SERUM 1.1 mg/dL (0.6-1.3); POTASSIUM - SERUM 3.9 mmol/L (3.5-5.1)
[2017-02-01 13:29] LABS: BASOPHILS 0.7 % (0-2); EOSINOPHILS 12.4 % (0-7); HEMATOCRIT 26.2 % (42.0-54.0); HEMOGLOBIN 8.4 g/dL (13.5-17.5); IMMATURE GRANULOCYTES 1.3 % (0-5); LYMPHOCYTES 13.7 % (15-50); MCH 26.3 pg (26.0-34.0); MCHC 32.1 g/dL (31.0-37.0); MCV 81.9 fL (80.0-100.0); MEAN PLATELET VOLUME 8.7 fL (7.4-10.4); MONOCYTES 21.2 % (2-11); NEUTROPHILS 50.7 % (40-80); RDW 19.9 % (11.5-14.5); WBC 5.5 10x3/uL (4.8-10.8)
[2017-02-01 13:31] LABS: PLATELET COUNT 94 10x3/uL (130-400)
[2017-02-01 15:46] VITALS: BP 126/58
--- NOTE | 2017-02-01 15:56 | NUR ---
CHANGED PADS UNDER PTS RIGHT LOWER EXTREMITY WHERE PTS LEG FROM OPEN AREAS ARE WEEPING. PT GIVEN NORCO PRN ORDERED FRO PAIN. WILL CONTINUE TO MONITOR.
--- NOTE | 2017-02-01 17:55 | NUR ---
PT IS CURRENTLY SITTING UP IN BED WITH EYES OPEN RESTING. THIS NURSE EMPTIED PTS URINAL AT BEDSIDE. NO NEED AT THIS TIME. WILL CONTINUE TO MONITOR.
[2017-02-01 19:09] LABS: AEROBE ID Final report (())
--- NOTE | 2017-02-01 19:30 | NUR ---
ROUNDING NOTE: PT IS LAYING IN BED AT CHANGE OF SHIFT. PT IS A,A,OX3. PT W/ VSS ON RA. HAS IV ACCESS VIA RIGHT UPPER ARM MIDLINE SALINE LOC. ON MONITOR, NSR. PT WITH LYMPHEDEMA RIGHT GREATER THAN LEFT WITH WEEPING AND SORES ON RIGHT LEG. PT IS BEDRIDDEN. REQUESTING A POPSICLE. WILL CONT TO MONITOR.
[2017-02-01 20:00] VITALS: BP 116/56
[2017-02-02] VITALS: BP 105/54
[2017-02-02 04:00] VITALS: BP 100/55
--- NOTE | 2017-02-02 04:00 | NUR ---
RAW STOCK DYEING MACHINE TENDER IN FOR VITAL SIGNS, WHICH ARE NOTED TO BE STABLE. PT ASSISTED TO USE BED REICH. PT ALSO GIVEN BED BATH EARLIER THIS EVENING WELL. BOTTOM NOTED TO BE PINK AND EXCORIATED. WILL CONT TO MONITOR.
[2017-02-02 05:18] LABS: BASOPHILS 0.7 % (0-2); EOSINOPHILS 13.4 % (0-7); HEMATOCRIT 27.9 % (42.0-54.0); HEMOGLOBIN 8.9 g/dL (13.5-17.5); IMMATURE GRANULOCYTES 0.2 % (0-5); MCH 26.3 pg (26.0-34.0); MCHC 31.9 g/dL (31.0-37.0); MCV 82.5 fL (80.0-100.0); MEAN PLATELET VOLUME 9.4 fL (7.4-10.4); MONOCYTES 21.5 % (2-11); NEUTROPHILS 48.2 % (40-80); PLATELET COUNT 101 10x3/uL (130-400); RBC 3.38 10x6/uL (4.20-6.10); WBC 4.6 10x3/uL (4.8-10.8)
[2017-02-02 05:32] LABS: CALC OSMOLALITY 264 mosm/kg (275-300); CALCIUM 7.2 mg/dL (8.5-10.1); CARBON DIOXIDE 22.4 mmol/L (21.0-32.0); CHLORIDE - SERUM 104 mmol/L (98-107); CREATININE - SERUM 0.9 mg/dL (0.6-1.3); GLUCOSE 105 mg/dL (74-106); POTASSIUM - SERUM 3.9 mmol/L (3.5-5.1); SODIUM 134 mmol/L (136-145); UREA NITROGEN 4 mg/dL (7-18); eGFR NON AFRICAN AMERICAN > 90 mL/min (90-120)
--- NOTE | 2017-02-02 07:29 | NUR ---
AM ROUNDING- RECEIVED REPORT FROM LENS MAKER NURSE LEMUEL. PT IS CURRENTLY SITTING UP IN BED WITH EYES OPEN RESTING WATCHING TV. ON ROOM AIR. ON MONITOR SHOWING SR, HR 93. IV SEEN TO RIGHT UPPER ARM MIDLINE THAT IS CURRENTLY SALINE LOCKED. PT IS CURRENTLY REQUESTING NORCO FOR PAIN. WILL TX PT ORDERED. WILL CONTINUE TO MONITOR AND CONTINUE WITH PLAN OF CARE.
[2017-02-02 08:00] VITALS: BP 113/54
[2017-02-02 12:00] VITALS: BP 117/51
--- NOTE | 2017-02-02 12:07 | NUR ---
PATIENT RESTING IN BED. VOICES NO NEEDS AT THIS TIME. CALL LIGHT WITHIN REACH. PATIEHT HAS VISITORS IN ROOM. TELEMETRY IN PLACE. LEGS OF BED UP DUE TO RIGHT LOWER EXTREMITY LYMPHEDEYA
--- NOTE | 2017-02-02 15:03 | NUR ---
PHYSICAL THERAPIST WORKING WITH PATIENT. PATIENT UP AT THE SIDE OF THE BED. BACK OF RIGHT LOWER LEG BLEEDING. SMALL OPEN AREA. CLEANED WITH WOUND DEHYDROGENATION CONVERTER OPERATOR AND ABD PADS APPLIED. KERLEX WRAP AROUND LEG
[2017-02-02 16:00] VITALS: BP 114/52
[2017-02-02 21:01] VITALS: BP 110/48
[2017-02-03 00:52] VITALS: BP 138/64
--- NOTE | 2017-02-03 02:23 | NUR ---
PT IN BED WITH HOB UP FOR COMFORT. EYES CLSOED. CHEST RISING AND FALLING. NO O2. RIGHT UPPER ARM MIDLINE SL. TELEMETRY. BED IN LOWEST POSITION AND CALL LIGHT WITHIN REACH.
[2017-02-03 05:04] LABS: BASOPHILS 0.9 % (0-2); EOSINOPHILS 12.7 % (0-7); HEMATOCRIT 27.1 % (42.0-54.0); HEMOGLOBIN 8.6 g/dL (13.5-17.5); IMMATURE GRANULOCYTES 0.2 % (0-5); LYMPHOCYTES 17.4 % (15-50); MCH 26.3 pg (26.0-34.0); MCHC 31.7 g/dL (31.0-37.0); MCV 82.9 fL (80.0-100.0); MEAN PLATELET VOLUME 8.6 fL (7.4-10.4); MONOCYTES 19.7 % (2-11); NEUTROPHILS 49.1 % (40-80); PLATELET COUNT 96 10x3/uL (130-400); RBC 3.27 10x6/uL (4.20-6.10); RDW 20.3 % (11.5-14.5); WBC 4.7 10x3/uL (4.8-10.8)
[2017-02-03 05:32] LABS: CALC OSMOLALITY 262 mosm/kg (275-300); CALCIUM 7.1 mg/dL (8.5-10.1); CARBON DIOXIDE 27.6 mmol/L (21.0-32.0); CHLORIDE - SERUM 104 mmol/L (98-107); CREATININE - SERUM 0.9 mg/dL (0.6-1.3); GLUCOSE 105 mg/dL (74-106); POTASSIUM - SERUM 3.8 mmol/L (3.5-5.1); SODIUM 133 mmol/L (136-145); UREA NITROGEN 5 mg/dL (7-18); eGFR NON AFRICAN AMERICAN > 90 mL/min (90-120)
[2017-02-03 05:36] VITALS: BP 113/50
--- NOTE | 2017-02-03 07:30 | NUR ---
REPORT RECEIVED. RR EVEN AND UNLABORED. ASSSISTED PT TO BEDPAN X2 ASSIST. WILL CALL WHEN READY TO GET OFF BED REICH.
--- NOTE | 2017-02-03 07:50 | NUR ---
ASSISTED PT OFF BEDPAN X3 ASSIST. ONE LIVE SMALL BUG FOUND ON SHEETS. SHEETS CHANGED AND PERICARE PROVIDED. PT HAD LARGE UNFORMED BM.
[2017-02-03 08:42] VITALS: BP 116/57
--- NOTE | 2017-02-03 11:04 | NUR ---
Nutrition follow-up: Diet: Regular mechanical soft with thin liquids PO intake 100% of most meals Labs reviewed Wt: 356# PO intake good at this time. RDN following.
--- NOTE | 2017-02-03 15:20 | NUR ---
DRESSING CHANGED TO RIGHT LOWER EXTREMITY. SCANT AMT OF BLOOD NOTED ON PREVIOUS DRESSING. PT AT BEDSIDE ASSISTING PT TO SIT UP ON SIDE OF BED. RR EVEN AND UNLABORED, DENIES NEEDS AT THIS TIME, WILL CTM.
--- NOTE | 2017-02-03 16:29 | NUR ---
Patient Name: BRADLEY HARRIS Encounter No: [id number] : 1960 Primary Insurance: MEDICARE A & B Anticipated DC Date: 01-29-2017 Planned Disposition: CUSTODIAL FACLITY External Planned Provider: FIRST ACCEPTING PROVIDER DCP follow-up note: CM MET WITH PT AND SPOUSE THIS MORNING, BOTH REPORT NO FACILITY CONTACTED THEM OVER THE WEEKEND REGARDING PLACEMENT. PT'S SPOUSE DOES NOT WANT PT TO GO TO [facility]. CM CALLED [facility], LEFT MESSAGE FROM [place] TO CANCEL REFERRAL. CM FAXED UPDATED REFERRAL INFORMATION TO [facility] AND FAXED REFERRALS TO [facility] AND [facility]. THROUGH THE DAY, CM RECEIVED DECLINATIONS FROM [facility], [facility], [facility] AND [facility]. CM CALLED [facility] OF [facility] AND [facility]. BOTH HAVE REFERRALS AND STILL ARE CONSIDERING PT. CM SPOKE TO PT AND SPOUSE IN ROOM, BOTH DECLINED CM TO SEND ANY FURTHER REFERRALS OUT[facility]IDE [facility]. THEY WANT TO WAIT ON [facility] AND [facility] TO MAKE ADMISSION DETERMINATION AND IF THEY HAVE TO, PLAN TO TAKE PT HOME IF BOTH NURSING HOMES DECLINE PT. PT REPORTS MAKING PROGRESS WITH THERAPY AND SAT ON EDGE OF BED TODAY. CM WAITING ON [facility] AND [facility] TO MAKE ADMISSION DETERMINATIONS. IF BOTH DECLINE, PT'S SPOUSE PLANS TO TAKE PT HOME WITH HOME HEALTH. Mahad Fairbanks, CASE MANAGEMENT
[2017-02-03 17:42] VITALS: BP 129/58
--- NOTE | 2017-02-03 18:49 | NUR ---
PT RESTING QUIETLY, RR EVEN AND UNLABORED. ASSIST PT ON BED REICH X2 ASSIST, WILL CALL WHEN READY TO GET OFF OF BED REICH. DENIES FURTHER NEEDS, WILL GIVE SHIFT REPORT ON PT CONDTION FOR THE DAY.
[2017-02-03 20:53] VITALS: BP 114/54
[2017-02-04 00:37] VITALS: BP 121/51
[2017-02-04 04:20] VITALS: BP 135/53
--- NOTE | 2017-02-04 07:00 | NUR ---
RECEIVED REPORT ON PATIENT. MORNING ROUNDS MADE. PATIENT RESTING IN BED WITH EYES CLOSED. EASILY AROUSED WHEN SPOKEN TO. DENIES ANY NEEDS AT THIS TIME. CPOC.
[2017-02-04 08:00] VITALS: BP 125/59
--- NOTE | 2017-02-04 08:10 | NUR ---
PATIENT ON BEDPAN, X2 ASSIST. PATIENT HAD LARGE UNFORMED BM. OPEN SKIN NOTED ON RIGHT UPPER THIGH BELOW BUTTOCKS. BLE LYMPHEDEMA WITH COBBLESTONE APPEARANCE ROUGH SCALY SKIN BILAT. CPOC.
--- NOTE | 2017-02-04 11:06 | NUR ---
Patient Name: BRADLEY HARRIS Encounter No: [id number] : 1960 Primary Insurance: MEDICARE A & B Anticipated DC Date: 01-29-2017 Planned Disposition: senior care facility External Planned Provider: first accepting DCP follow-up note: CM CALLED [facility], , [facility] WAS IN MEETING, CM LEFT MESSAGE REQUESTING RETURN CALL REGARDING REHAB REFERRAL PREVIOUSLY SENT. CM CALLED [facility] OF [facility] [employer], , [place] STILL EVALUATING PT; CM FAXED UPDATE TO [facility]IA [employer] AT [phone]. CM WAITING ON [facility] AND [facility] TO MAKE ADMISSION DETERMINATIONS. IF BOTH DECLINE, PT'S SPOUSE PLANS TO TAKE PT HOME WITH HOME HEALTH. Mahad Fairbanks, CASE MANAGEMENT
[2017-02-04 12:00] VITALS: BP 116/61
--- NOTE | 2017-02-04 12:32 | NUR ---
PATIENT SITTING UP IN BED EATING LUNCH, DENIES ANY NEEDS. CPOC
--- NOTE | 2017-02-04 15:41 | NUR ---
DRESSING CHANGED TO LOWER RIGHT LEG. ASSISTED PHYS THERAPY GETTING PATIENT BACK IN BED. DENIES ANY REQUESTS AT THIS TIME.
[2017-02-04 16:00] VITALS: BP 113/56
--- NOTE | 2017-02-04 19:00 | NUR ---
EVENING ROUNDS MADE. PATIENT DENIES ANY NEEDS AT THIS TIME. CPOC.
--- NOTE | 2017-02-04 19:30 | NUR ---
ROUNDING NOTE: ASSISTED PT ONTO THE BEDPAN WITH MONITORING SPECIALIST. CLEANED PT UP AND CHANGED PT'S BED. PT IS A,A,OX3. REFILLED ICE WATER AND GAVE PT POPSCICLE PER REQUEST. PT'S RIGHT UPPER ARM MIDLINE SALINE LOC, FLUSHED W/ NS AND PATENT. PER PT, PLAN IS FOR POSSIBLE D/C TO REHAB SOON A BED CAN BE OBTAINED. THERE MAY BE AN OPENING AT [facility]. PT IS VERY EXCITED. WILL CONT TO MONITOR.
[2017-02-04 20:00] VITALS: BP 119/54
[2017-02-05] VITALS: BP 126/53
[2017-02-05 04:00] VITALS: BP 116/53
--- NOTE | 2017-02-05 07:15 | NUR ---
REPORT RECEIVED. RR EVEN AND UNLABORED, ASSISTED PT OFF BED REICH X3 ASSIST. CHANGED LINENS. PT DENIES PAIN AT THIS TIME AND NEEDS. WILL CTM.
[2017-02-05 10:31] VITALS: BP 128/38
--- NOTE | 2017-02-05 12:32 | NUR ---
Patient Name: BRADLEY HARRIS Encounter No: [id number] : 1960 Primary Insurance: MEDICARE A & B Anticipated DC Date: 02-05-2017 Planned Disposition: Senior Living Facility External Planned Provider: [facility], MEDICARE REHAB BED DCP follow-up note: CM RECEIVED MESSAGE FROM [facility], SHE RECEIVED REFERRAL AND WILL EVALUATE PT TODAY. CM RECEIVED CALL FROM OSMAN OF [facility], THEY WILL ACCEPT PT TODAY FOR REHAB AND HAVE ALL EQUIPMENT IN PLACE. [facility] TO [facility]TROSE [facility] PT TODAY. CM NOTIFIED PT AND SPOUSE IN ROOM, THEY REPORTED THAT [facility] CAME BY AND THEY DO NOT REALLY WANT TO GO THERE AND PREFER [facility], PT IN AGREEMENT WITH DISCHARGE TO REHAB AT [facility] TODAY. PT REPORTS ABILITY TO SIT IN WHEELCHAIR FOR VAN TRANSPORT. CM NOTIFIED CECELIA LOPEZ AND OBTAINED DISCHARGE ORDERS. CM FAXED DISCHARGE INFORMATION TO [facility] VIA [employer] AT [phone]. SUPERVISOR FRAME SAMPLE AND PATTERN NURSE NOTIFIED. NURSE REPORT TO BE CALLED TO [facility] AT [phone]. Mahad Fairbanks, CASE MANAGEMENT
--- NOTE | 2017-02-05 13:04 | NUR ---
PT IS DISHCARGED. CALLED [facility] AND GAVE REPORT ON PT TO KIMBERLEY BROWNING. KIMBERLEY REPORTED THAT SHE WOULD CALL ME WHEN TRANSPORT WILL BE ARRIVING.
[2017-02-05 13:23] VITALS: BP 112/61
--- NOTE | 2017-02-05 14:30 | NUR ---
PT D/C PAPERWORK IS COMPLETE. GERDA LARA REPORTED TO CASE MANAGEMENT THAT THEY WILL BE HERE AROUND 1500. D/C INSTRUCTIONS PROVIDED TO PT AND FAMILY. WILL GIVE TO [facility] PERSONNEL. MIDLINE REMOVED TO 15, DRESSING APPLIED. PT REPORTS THAT HE BROUGHT HIS MEDICATIONS IN WITH IN ER WHEN HE CAME TO THE HOSPITAL. WILL CALL ER AND TRY TO LOCATE THE MEDS. WILL CTM UNTIL TRANSPORT IS HERE.
--- NOTE | 2017-02-05 14:55 | NUR ---
GAVE MEDS FROM HOME BACK TO FAMILY MEMBER, INCLUDING THE HYDROCODONE. MEDS WERE BROUGHT UP FROM PHARMACY.
--- NOTE | 2017-02-11 12:14 | EC ---
PATIENT:BRADLEY HARRIS DATE OF SERVICE: 01/26/17 SEX: M MEDICAL RECORD: [id number] DATE OF : [birth year] LOCATION:D. D.210 AGE OF PATIENT: 56 ADMISSION DATE: 01/26/17 REFERRING PHYSICIAN: INTERPRETING PHYSICIAN: LEN HEARN MD ECHOCARDIOGRAM REPORT ECHO CHARGES 4 ECHO COMPLETE CLINICAL DIAGNOSIS: CHF ECHOCARDIOGRAPHIC MEASUREMENTS (adult normal given) AC root (d.<3.7cm) 3.8 cm LV Septum d (<1.2 cm> 2.0 cm Valve Excursion 2.5 cm LV Septum (systole) 2.4 cm Left Atria (s.<4.0cm> 4.1 cm LVPW d(<1.2cm) 1.5 cm RV (d.<2.3cm) 4.3 cm LVPW (sytole) 2.1 cm LV diastole(<5.6CM) 5.3 cm MV E-F(>70mm/sec) cm LV systole 2.7 cm LVOT Diameter 2.2 cm MV exc.(>10mm) cm Est.ejection fraction (50-75%) % Pericardial Effusion N DOPPLER: LVIT cm/sec A 139 cm/sec E 124 cm/sec LA cm/sec RVSP 35.0 mmHg LVOT 177 cm/sec AOP1/2T m/s Asc. Ao 237 cm/sec RVOT 120 cm/sec RA cm/sec PA 197 cm/sec AV Gradient Peak 23.0 mmHg AV Mean 11.4 mmHg AV Area 2.9 cm MV Gradient Peak 7.2 mmHg MV Mean 2.8 mmHg MV Area cm COMMENTS: Coffee Sommelier: Cyrus HSU ELCO Front Desk Host: 1 Dr. Hearn TAPE# PACS DATE OF SERVICE: 01/27/2017 DATE OF SERVICE: 01/27/2017 ECHOCARDIOGRAM FINDINGS: 1. Left ventricular chamber size is within normal limits. Left ventricular systolic function is normal. Overall ejection fraction is estimated at 60%. 2. Left atrium, right atrium, and right ventricle chamber sizes are mildly ECHOCARDIOGRAM REPORT [id number] BRADLEY HARRIS dilated. Left atrium measures 4.1 cm. 3. Valvular structures have normal structure and motion. 4. Doppler interrogation reveals only mild tricuspid regurgitation, no other valvular insufficiency or stenosis. Pulmonary systolic pressure is preserved at 35 mmHg. 5. No evidence of pericardial effusion or left ventricular thrombus. TRANSINT:[id number] Voice Confirmation ID: [id number] DOCUMENT ID: [id number] LEN HEARN MD at 1214 CC: [id number] DICTATION DATE: 01/27/17 1223 PHOTOGRAPHIC PLATE MAKER: 01/27/17 1254 DIS IN 02/05/17 [place] [id number] [place] [id number]
== END 2017-02-05 15:53 | DRG 689 ==
LOC: D.ER 10:42 → D.M2 13:38 → D.ICU 13:38 → D.M2 01-27 15:55
PROVIDERS: Emergency Medicine; Family Medicine; Nurse Practitioner Family; ADMIT Family Medicine Adult Medicine
PROC: 0T9B70Z Drainage of Bladder with Drainage Device, Via Natural or Artificial Opening (ICD-10-PCS; principal; 2017-01-26)
PROC: 05HY33Z Insertion of Infusion Device into Upper Vein, Percutaneous Approach (ICD-10-PCS; 2017-01-29)
DX: N39.0 Urinary tract infection, site not specified (principal); G93.41 Metabolic encephalopathy; E72.20 Disorder of urea cycle metabolism, unspecified; L03.116 Cellulitis of left lower limb; D64.9 Anemia, unspecified; E66.9 Obesity, unspecified; I10 Essential (primary) hypertension; F32.9 Major depressive disorder, single episode, unspecified; R73.9 Hyperglycemia, unspecified; E86.0 Dehydration; R00.0 Tachycardia, unspecified; E87.6 Hypokalemia; K74.60 Unspecified cirrhosis of liver

== ENCOUNTER 2017-03-26 22:49 | Inpatient (IN) | payer MEDICARE ==
[~2017-03-26] VITALS: Ht 177.8 cm; Wt 186.6 kg
[~2017-03-26 22:49] MED LIST changes: +LEVAQUIN500 MG PO; +OMNICEF300 MG PO; +XIFAXAN550 MG PO
[2017-03-27 00:12] LABS: CREATINE KINASE 30 UL (21-232); MAGNESIUM - SERUM 1.7 mg/dL (1.8-2.4); PRO BNP 240 pg/mL (0-125)
[2017-03-27 00:16] LABS: TROPONIN-I < 0.017 ng/mL (0.000-0.060)
[2017-03-27 04:00] VITALS: BP 94/43
[2017-03-27 08:18] VITALS: BP 108/52
[2017-03-27 10:24] LABS: BASOPHILS 0.2 % (0-2); EOSINOPHILS 6.2 % (0-7); HEMATOCRIT 28.9 % (42.0-54.0); IMMATURE GRANULOCYTES 1.4 % (0-5); LYMPHOCYTES 9.3 % (15-50); MCH 25.9 pg (26.0-34.0); MCHC 30.4 g/dL (31.0-37.0); MEAN PLATELET VOLUME 7.4 fL (7.4-10.4); MONOCYTES 18.6 % (2-11); NEUTROPHILS 64.3 % (40-80); PLATELET COUNT 128 10x3/uL (130-400); RDW 17.5 % (11.5-14.5); WBC 6.3 10x3/uL (4.8-10.8)
[2017-03-27 10:26] VITALS: Ht 177.8 cm; Wt 186.6 kg
[2017-03-27 10:26] LABS: HEMOGLOBIN 8.8 g/dL (13.5-17.5)
[2017-03-27 10:27] LABS: RBC 3.41 10x6/uL (4.20-6.10)
[2017-03-27 10:36] LABS: HEMOGLOBIN A1C 4.4 % (4.8-6.0)
[2017-03-27 10:50] LABS: ALBUMIN 1.6 g/dL (3.4-5.0); ALKALINE PHOSPHATASE 119 U/L (46-116); ALT (SGPT) 10 U/L (10-68); BILIRUBIN - TOTAL 0.87 mg/dL (0.2-1.3); CALC OSMOLALITY 268 mosm/kg (275-300); CALCIUM 7.4 mg/dL (8.5-10.1); CARBON DIOXIDE 36.9 mmol/L (21.0-32.0); CHLORIDE - SERUM 99 mmol/L (98-107); CREATININE - SERUM 0.8 mg/dL (0.6-1.3); GLUCOSE 103 mg/dL (74-106); MAGNESIUM - SERUM 1.7 mg/dL (1.8-2.4); POTASSIUM - SERUM 3.3 mmol/L (3.5-5.1); PROTEIN - SERUM 7.9 g/dL (6.4-8.2); SODIUM 136 mmol/L (136-145); THYROID STIMULATING HORMONE 3.59 uIU/mL (0.36-3.74); UREA NITROGEN 3 mg/dL (7-18); eGFR NON AFRICAN AMERICAN > 90 mL/min (90-120)
[2017-03-27 11:11] VITALS: BP 122/58
[2017-03-27 21:54] VITALS: BP 117/53
[2017-03-28 01:14] VITALS: BP 147/57
[2017-03-28 06:08] VITALS: BP 106/49
[2017-03-28 07:56] LABS: BASOPHILS 0 % (0-2); EOSINOPHILS 0 % (0-7); HEMATOCRIT 29.9 % (42.0-54.0); HEMOGLOBIN 9.4 g/dL (13.5-17.5); IMMATURE GRANULOCYTES 1.9 % (0-5); MCHC 31.4 g/dL (31.0-37.0); MEAN PLATELET VOLUME 8.7 fL (7.4-10.4); MONOCYTES 7.9 % (2-11); NEUTROPHILS 83.2 % (40-80); PLATELET COUNT 124 10x3/uL (130-400); RBC 3.61 10x6/uL (4.20-6.10); RDW 17.4 % (11.5-14.5); WBC 6.8 10x3/uL (4.8-10.8)
[2017-03-28 07:57] LABS: MCV 82.8 fL (80.0-100.0)
[2017-03-28 08:05] LABS: ALBUMIN 1.6 g/dL (3.4-5.0); ALKALINE PHOSPHATASE 118 U/L (46-116); BILIRUBIN - TOTAL 0.66 mg/dL (0.2-1.3); CALCIUM 7.5 mg/dL (8.5-10.1); CARBON DIOXIDE 32.7 mmol/L (21.0-32.0); CHLORIDE - SERUM 101 mmol/L (98-107); CREATININE - SERUM 0.7 mg/dL (0.6-1.3); PROTEIN - SERUM 8.1 g/dL (6.4-8.2); SODIUM 137 mmol/L (136-145); eGFR NON AFRICAN AMERICAN > 90 mL/min (90-120)
[2017-03-28 08:24] LABS: ALT (SGPT) 11 U/L (10-68); GLUCOSE 146 mg/dL (74-106)
[2017-03-28 08:30] LABS: CALC OSMOLALITY 274 mosm/kg (275-300); POTASSIUM - SERUM 4.5 mmol/L (3.5-5.1); UREA NITROGEN 7 mg/dL (7-18)
[2017-03-28 09:18] VITALS: BP 131/52
[2017-03-28 12:00] VITALS: BP 118/40
[2017-03-28 18:10] VITALS: BP 121/49
[2017-03-28 19:00] VITALS: BP 124/50
[2017-03-29 04:40] VITALS: BP 126/62
[2017-03-29 04:56] LABS: BASOPHILS 0 % (0-2); EOSINOPHILS 0 % (0-7); HEMATOCRIT 27.6 % (42.0-54.0); HEMOGLOBIN 8.3 g/dL (13.5-17.5); MCH 25.6 pg (26.0-34.0); MCHC 30.1 g/dL (31.0-37.0); MEAN PLATELET VOLUME 8.1 fL (7.4-10.4); MONOCYTES 10.7 % (2-11); NEUTROPHILS 82.3 % (40-80); RBC 3.24 10x6/uL (4.20-6.10); WBC 8.2 10x3/uL (4.8-10.8)
[2017-03-29 05:07] LABS: MCV 85.2 fL (80.0-100.0); PLATELET COUNT 160 10x3/uL (130-400)
[2017-03-29 05:12] LABS: CALC OSMOLALITY 272 mosm/kg (275-300); CALCIUM 7.5 mg/dL (8.5-10.1); CARBON DIOXIDE 36.3 mmol/L (21.0-32.0); CHLORIDE - SERUM 99 mmol/L (98-107); CREATININE - SERUM 0.8 mg/dL (0.6-1.3); GLUCOSE 139 mg/dL (74-106); MAGNESIUM - SERUM 1.6 mg/dL (1.8-2.4); PHOSPHOROUS 2.6 mg/dL (2.5-4.9); SODIUM 136 mmol/L (136-145); eGFR NON AFRICAN AMERICAN > 90 mL/min (90-120)
[2017-03-29 05:24] LABS: UREA NITROGEN 11 mg/dL (7-18)
[2017-03-29 08:21] VITALS: BP 130/68
[2017-03-29 12:25] VITALS: BP 122/58
[2017-03-29 15:45] VITALS: BP 128/64
[2017-03-29 16:52] VITALS: BP 128/64
[2017-03-29 19:00] VITALS: BP 121/62
[2017-03-30] VITALS: BP 100/60
[2017-03-30 04:00] VITALS: BP 139/66
[2017-03-30 06:36] LABS: BASOPHILS 0.1 % (0-2); EOSINOPHILS 0 % (0-7); HEMATOCRIT 29.9 % (42.0-54.0); HEMOGLOBIN 9.2 g/dL (13.5-17.5); IMMATURE GRANULOCYTES 2.4 % (0-5); LYMPHOCYTES 9.1 % (15-50); MCH 26.3 pg (26.0-34.0); MCHC 30.8 g/dL (31.0-37.0); MCV 85.4 fL (80.0-100.0); MEAN PLATELET VOLUME 8.2 fL (7.4-10.4); MONOCYTES 9.2 % (2-11); NEUTROPHILS 79.2 % (40-80); PLATELET COUNT 177 10x3/uL (130-400); RDW 18.1 % (11.5-14.5)
[2017-03-30 07:02] LABS: CALC OSMOLALITY 272 mosm/kg (275-300); CALCIUM 7.4 mg/dL (8.5-10.1); CARBON DIOXIDE 34.2 mmol/L (21.0-32.0); CHLORIDE - SERUM 99 mmol/L (98-107); CREATININE - SERUM 0.8 mg/dL (0.6-1.3); GLUCOSE 134 mg/dL (74-106); PHOSPHOROUS 3.2 mg/dL (2.5-4.9); POTASSIUM - SERUM 4.3 mmol/L (3.5-5.1); SODIUM 135 mmol/L (136-145); eGFR NON AFRICAN AMERICAN > 90 mL/min (90-120)
[2017-03-30 07:04] LABS: UREA NITROGEN 14 mg/dL (7-18)
[2017-03-30 09:15] VITALS: BP 126/57
[2017-03-30 11:48] VITALS: BP 127/58
[2017-03-30 16:43] VITALS: BP 122/60
[2017-03-30 21:26] VITALS: BP 134/65
[2017-03-31 01:03] VITALS: BP 112/55
[2017-03-31 04:54] VITALS: BP 124/81
[2017-03-31] MEDS ORDERED: LEVAQUIN750 MG PO (07:02)
[2017-03-31] MEDS ORDERED: IPRAT-ALBUT 0.5-3 ML UPD (07:03)
[2017-03-31] MEDS ORDERED: BROVANA15 MCG/2 M INH (07:03)
[2017-03-31] MEDS ORDERED: BUMEX2 MG PO (07:04)
[2017-03-31] MEDS ORDERED: K-DUR20 MEQ PO (07:05)
[2017-03-31] MEDS ORDERED: MUCINEX600 MG PO (07:06)
[2017-03-31] MEDS ORDERED: PULMICORT0.5 MG/21 UPD (07:06)
[2017-03-31] MEDS ORDERED: FLORAJEN3 CAPS460 MG PO (07:07)
[2017-03-31] MEDS ORDERED: LINZESS145 MCG PO (07:07)
[2017-03-31 07:39] VITALS: BP 128/53
== END 2017-03-31 11:14 | DRG 811 ==
LOC: D.ER 22:49 → D.M2 23:58 → OBSVTIME 23:58 → D.M2 03-27 10:08
PROVIDERS: Emergency Medicine; Family Medicine
DX: D64.9 Anemia, unspecified (principal); J18.9 Pneumonia, unspecified organism; L03.115 Cellulitis of right lower limb; L03.116 Cellulitis of left lower limb; Z68.43 Body mass index [BMI] 50.0-59.9, adult; E66.01 Morbid (severe) obesity due to excess calories; K21.9 Gastro-esophageal reflux disease without esophagitis; I10 Essential (primary) hypertension; E03.9 Hypothyroidism, unspecified; Z74.09 Other reduced mobility; K25.7 Chronic gastric ulcer without hemorrhage or perforation; K59.00 Constipation, unspecified

== ENCOUNTER 2017-11-20 16:46 | Inpatient (IN) | payer MEDICARE ==
[~2017-11-20] VITALS: Ht 177.8 cm; Wt 152.8 kg
[~2017-11-20 16:46] MED LIST changes: +BROVANA15 MCG/2 M INH; +BUMEX2 MG PO; +IPRAT-ALBUT 0.5-3 ML UPD; +K-DUR20 MEQ PO; +LEVAQUIN750 MG PO; +LINZESS145 MCG PO; +MUCINEX600 MG PO; +PULMICORT0.5 MG/21 UPD
[2017-11-20 17:37] LABS: BASOPHILS 0.2 % (0-2); EOSINOPHILS 4.5 % (0-7); HEMATOCRIT 33.4 % (42.0-54.0); HEMOGLOBIN 11.5 g/dL (13.5-17.5); IMMATURE GRANULOCYTES 0.3 % (0-5); LYMPHOCYTES 14.9 % (15-50); MCH 30.3 pg (26.0-34.0); MCHC 34.4 g/dL (31.0-37.0); MCV 87.9 fL (80.0-100.0); MEAN PLATELET VOLUME 8.4 fL (7.4-10.4); MONOCYTES 14.6 % (2-11); NEUTROPHILS 65.5 % (40-80); RDW 15.3 % (11.5-14.5); WBC 5.8 10x3/uL (4.8-10.8)
[2017-11-20 18:01] LABS: PLATELET COUNT 101 10x3/uL (130-400)
[2017-11-20 18:16] LABS: ALBUMIN 2.2 g/dL (3.4-5.0); ALKALINE PHOSPHATASE 177 U/L (46-116); ALT (SGPT) 14 U/L (10-68); BILIRUBIN - TOTAL 0.79 mg/dL (0.2-1.3); CALC OSMOLALITY 283 mosm/kg (275-300); CALCIUM 8.8 mg/dL (8.5-10.1); CARBON DIOXIDE 26.3 mmol/L (21.0-32.0); CHLORIDE - SERUM 101 mmol/L (98-107); GLUCOSE 90 mg/dL (74-106); POTASSIUM - SERUM 5.3 mmol/L (3.5-5.1); PROTEIN - SERUM 7.5 g/dL (6.4-8.2); SODIUM 137 mmol/L (136-145); UREA NITROGEN 41 mg/dL (7-18); eGFR NON AFRICAN AMERICAN 23 mL/min (90-120)
[2017-11-20 18:25] LABS: CKMB 0.8 U/L (0.0-3.6); CREATINE KINASE 23 UL (21-232); PRO BNP 2420 pg/mL (0-125)
[2017-11-20 18:38] LABS: TROPONIN-I < 0.017 ng/mL (0.000-0.060)
[2017-11-20 19:30] VITALS: BP 115/52
[2017-11-20 21:28] LABS: APPEARANCE CLEAR (CLEAR); BILIRUBIN NEGATIVE (NEGATIVE); COLOR TAN (YELLOW); GLUCOSE NEGATIVE (NEGATIVE); KETONE NEGATIVE (NEGATIVE); NITRITE POSITIVE (NEGATIVE); PROTEIN NEGATIVE (NEGATIVE); SPECIFIC GRAVITY 1.015 (1.005-1.020); UROBILINOGEN NORMAL (NORMAL)
[2017-11-20 21:29] LABS: BACTERIA MANY /hpf (NONE SEEN); RED CELLS - URINE 0-5 /hpf (0-5)
[2017-11-20 23:00] VITALS: BMI 48.3
[2017-11-20 23:12] VITALS: BP 120/55
[2017-11-20] MEDS ORDERED: BUMETANIDE0.5 MG PO (23:57)
[2017-11-21] MEDS ORDERED: OS-CAL500 MG PO (00:02)
[2017-11-21] MEDS ORDERED: CELEBREX 100 M100 MG PO (00:03)
[2017-11-21] MEDS ORDERED: COUMADIN2 MG PO (00:04)
[2017-11-21] MEDS ORDERED: FERROUS SULFAT325 MG PO (00:04)
[2017-11-21] MEDS ORDERED: CHRONULAC30 ML PO (00:05)
[2017-11-21] MEDS ORDERED: SYNTHROID50 MCG PO (00:06)
[2017-11-21] MEDS ORDERED: MIRALAX17 GM PO (00:07)
[2017-11-21] MEDS ORDERED: NORCO 10-325 TA1 TAB PO (00:08)
[2017-11-21] MEDS ORDERED: NYSTATIN15 GM TOPICAL (00:08)
[2017-11-21] MEDS ORDERED: PROZAC40 MG PO (00:09)
[2017-11-21] MEDS ORDERED: ALDACTONE100 MG PO (00:09)
[2017-11-21] MEDS ORDERED: VERELAN180 MG PO (00:10)
[2017-11-21] MEDS ORDERED: ZOFRAN4 MG PO (00:11)
[2017-11-21 04:44] VITALS: BP 125/47
[2017-11-21 04:51] LABS: BASOPHILS 0.4 % (0-2); EOSINOPHILS 3.4 % (0-7); HEMATOCRIT 35.3 % (42.0-54.0); HEMOGLOBIN 11.9 g/dL (13.5-17.5); IMMATURE GRANULOCYTES 0.4 % (0-5); LYMPHOCYTES 14.5 % (15-50); MCHC 33.7 g/dL (31.0-37.0); MCV 88.9 fL (80.0-100.0); MEAN PLATELET VOLUME 10.2 fL (7.4-10.4); MONOCYTES 13.5 % (2-11); NEUTROPHILS 67.8 % (40-80); RBC 3.97 10x6/uL (4.20-6.10); RDW 15.4 % (11.5-14.5)
[2017-11-21 04:58] LABS: PLATELET COUNT 122 10x3/uL (130-400)
[2017-11-21 05:10] LABS: ALBUMIN 2.2 g/dL (3.4-5.0); ANION GAP 14.7 mmol/L (8-16); BILIRUBIN - TOTAL 1.14 mg/dL (0.2-1.3); CALCIUM 8.6 mg/dL (8.5-10.1); CARBON DIOXIDE 25.4 mmol/L (21.0-32.0); CREATININE - SERUM 2.8 mg/dL (0.6-1.3); MAGNESIUM - SERUM 2.3 mg/dL (1.8-2.4); PHOSPHOROUS 4.4 mg/dL (2.5-4.9); POTASSIUM - SERUM 5.1 mmol/L (3.5-5.1); PROTEIN - SERUM 7.1 g/dL (6.4-8.2)
[2017-11-21 08:36] VITALS: BP 121/65
[2017-11-21 10:29] VITALS: Ht 177.8 cm; Wt 152.8 kg
[2017-11-21 22:28] VITALS: BP 111/42
[2017-11-22 04:59] VITALS: BP 122/54
[2017-11-22 05:32] LABS: INR 2.86 (0.85-1.17); PROTIME 29.3 SECONDS (11.6-15.0)
[2017-11-22 07:03] VITALS: BP 110/49
[2017-11-22 13:27] LABS: ANION GAP 11.7 mmol/L (8-16); BILIRUBIN - TOTAL 1.25 mg/dL (0.2-1.3); CALCIUM 8.5 mg/dL (8.5-10.1); CREATININE - SERUM 2.2 mg/dL (0.6-1.3); POTASSIUM - SERUM 4.7 mmol/L (3.5-5.1); PROTEIN - SERUM 7.1 g/dL (6.4-8.2); THYROID STIMULATING HORMONE 2.11 uIU/mL (0.36-3.74)
[2017-11-22 16:14] VITALS: BP 98/48
[2017-11-22 20:27] VITALS: BP 114/45
[2017-11-23 01:03] VITALS: BP 100/45
[2017-11-23 04:59] VITALS: BP 129/53
[2017-11-23 05:51] LABS: BASOPHILS 0.3 % (0-2); EOSINOPHILS 4.4 % (0-7); HEMATOCRIT 29.9 % (42.0-54.0); IMMATURE GRANULOCYTES 0.7 % (0-5); MCH 29.5 pg (26.0-34.0); MCHC 33.4 g/dL (31.0-37.0); MCV 88.2 fL (80.0-100.0); MEAN PLATELET VOLUME 8.7 fL (7.4-10.4); MONOCYTES 15.3 % (2-11); NEUTROPHILS 64.3 % (40-80); RBC 3.39 10x6/uL (4.20-6.10); RDW 15.1 % (11.5-14.5); WBC 5.9 10x3/uL (4.8-10.8)
[2017-11-23 05:57] LABS: INR 2.55 (0.85-1.17); PROTIME 26.8 SECONDS (11.6-15.0)
[2017-11-23 06:04] LABS: PLATELET COUNT 91 10x3/uL (130-400)
[2017-11-23 06:22] LABS: ALBUMIN 1.8 g/dL (3.4-5.0); ANION GAP 11.6 mmol/L (8-16); BILIRUBIN - TOTAL 0.99 mg/dL (0.2-1.3); CALCIUM 8.2 mg/dL (8.5-10.1); CARBON DIOXIDE 25.5 mmol/L (21.0-32.0); CREATININE - SERUM 1.9 mg/dL (0.6-1.3); POTASSIUM - SERUM 4.1 mmol/L (3.5-5.1); PROTEIN - SERUM 6.7 g/dL (6.4-8.2)
[2017-11-23 08:16] LABS: PLATELET ESTIMATE DECREASED
[2017-11-23 09:41] VITALS: BP 118/54
[2017-11-23 15:53] VITALS: BP 112/58
[2017-11-23 20:05] VITALS: BP 109/50
[2017-11-24 03:43] VITALS: BP 109/47
[2017-11-24 04:55] LABS: BASOPHILS 0.4 % (0-2); EOSINOPHILS 5.2 % (0-7); HEMATOCRIT 28.4 % (42.0-54.0); HEMOGLOBIN 9.5 g/dL (13.5-17.5); IMMATURE GRANULOCYTES 0.7 % (0-5); LYMPHOCYTES 12.5 % (15-50); MCH 29.5 pg (26.0-34.0); MCHC 33.5 g/dL (31.0-37.0); MCV 88.2 fL (80.0-100.0); MEAN PLATELET VOLUME 9.2 fL (7.4-10.4); MONOCYTES 19.7 % (2-11); NEUTROPHILS 61.5 % (40-80); PLATELET COUNT 91 10x3/uL (130-400); RBC 3.22 10x6/uL (4.20-6.10); WBC 6.9 10x3/uL (4.8-10.8)
[2017-11-24 04:57] LABS: INR 2.64 (0.85-1.17); PROTIME 27.5 SECONDS (11.6-15.0)
[2017-11-24 05:07] LABS: ALBUMIN 1.8 g/dL (3.4-5.0); ANION GAP 11.2 mmol/L (8-16); BILIRUBIN - TOTAL 0.61 mg/dL (0.2-1.3); CALCIUM 7.9 mg/dL (8.5-10.1); CARBON DIOXIDE 24.7 mmol/L (21.0-32.0); CREATININE - SERUM 1.6 mg/dL (0.6-1.3); POTASSIUM - SERUM 3.9 mmol/L (3.5-5.1); PRE-ALBUMIN 8.1 mg/dL (18.0-35.7); PROTEIN - SERUM 6.5 g/dL (6.4-8.2)
[2017-11-24 08:02] VITALS: BP 110/48
[2017-11-24 15:58] VITALS: BP 107/46
[2017-11-24 20:26] VITALS: BP 114/43
[2017-11-25 04:27] VITALS: BP 117/56
[2017-11-25 05:52] LABS: INR 2.39 (0.85-1.17); PROTIME 25.4 SECONDS (11.6-15.0)
[2017-11-25 07:52] VITALS: BP 103/49
[2017-11-25 12:34] VITALS: BP 109/47
[2017-11-25] MEDS ORDERED: ROCEPHIN 1 GM/D51 G1 IM (15:34)
[2017-11-25] MEDS ORDERED: XIFAXAN550 MG PO (15:35)
[2017-11-25] MEDS ORDERED: FLORAJEN3 CAPS460 MG PO (15:37)
[2017-11-25 16:43] LABS: ANION GAP 13.3 mmol/L (8-16); BILIRUBIN - TOTAL 0.49 mg/dL (0.2-1.3); CALCIUM 7.5 mg/dL (8.5-10.1); CARBON DIOXIDE 26.1 mmol/L (21.0-32.0); CREATININE - SERUM 1.3 mg/dL (0.6-1.3); POTASSIUM - SERUM 4.4 mmol/L (3.5-5.1); PROTEIN - SERUM 6.9 g/dL (6.4-8.2)
[2017-11-25 18:40] LABS: BASOPHILS 0.3 % (0-2); EOSINOPHILS 5.1 % (0-7); HEMATOCRIT 30.8 % (42.0-54.0); HEMOGLOBIN 10.6 g/dL (13.5-17.5); IMMATURE GRANULOCYTES 1.6 % (0-5); LYMPHOCYTES 14.5 % (15-50); MCH 30.3 pg (26.0-34.0); MCHC 34.4 g/dL (31.0-37.0); MEAN PLATELET VOLUME 8.6 fL (7.4-10.4); MONOCYTES 17.4 % (2-11); NEUTROPHILS 61.1 % (40-80); PLATELET COUNT 107 10x3/uL (130-400); RDW 15.1 % (11.5-14.5); WBC 6.8 10x3/uL (4.8-10.8)
[2017-11-25 22:10] VITALS: BP 111/52
[2017-11-26 04:08] VITALS: BP 108/46
[2017-11-26 05:46] VITALS: BP 108/46
[2017-11-26 06:03] LABS: INR 2.03 (0.85-1.17); PROTIME 22.4 SECONDS (11.6-15.0)
[2017-11-26 08:26] VITALS: BP 102/47
[2017-11-26 13:47] VITALS: BP 96/47
== END 2017-11-26 12:50 | DRG 442 ==
LOC: D.ER 16:46 → D.MS 21:53
PROVIDERS: Family Medicine
DX: K72.90 Hepatic failure, unspecified without coma (principal); E72.20 Disorder of urea cycle metabolism, unspecified; N39.0 Urinary tract infection, site not specified; I82.441 Acute embolism and thrombosis of right tibial vein; Z68.42 Body mass index [BMI] 45.0-49.9, adult; I82.413 Acute embolism and thrombosis of femoral vein, bilateral; L03.115 Cellulitis of right lower limb; K74.60 Unspecified cirrhosis of liver; I12.9 Hypertensive chronic kidney disease with stage 1 through stage 4 chronic kidney disease, or unspecified chronic kidney disease; N18.3 Chronic kidney disease, stage 3 (moderate); E11.22 Type 2 diabetes mellitus with diabetic chronic kidney disease; F32.9 Major depressive disorder, single episode, unspecified; G89.29 Other chronic pain; M54.9 Dorsalgia, unspecified; E66.01 Morbid (severe) obesity due to excess calories; B96.20 Unspecified Escherichia coli [E. coli] as the cause of diseases classified elsewhere; E87.5 Hyperkalemia; K21.9 Gastro-esophageal reflux disease without esophagitis; I89.0 Lymphedema, not elsewhere classified; Z74.09 Other reduced mobility; R41.89 Other symptoms and signs involving cognitive functions and awareness